=== PATIENT | female | born 1970 | race Caucasian/White ===

== ENCOUNTER 2018-08-25 19:21 | Emergency (ER) | payer OTHER, MEDICAID, SELFPAY ==
[2018-08-25 19:50] VITALS: BP 161/92; PULSE 88; RESP 14; TEMP 37.1; O2SAT 98; BMI 24.7
--- NOTE | 2018-08-25 19:55 | DI.RAD.S_ITS ---
PROCEDURE: XR CHEST 1V INDICATIONS: suspected sepsis TECHNIQUE: One view of the chest was acquired. COMPARISON: [facility], , CHEST 1 VIEW, 11/17/2007, 9:37. FINDINGS: Surgical changes and devices: Epidural neurostimulator is partially visualized. Multiple surgical clips are projected over the epigastrium. Lungs and pleura: No pleural effusions or pneumothorax. Lungs are clear. There is likely pleural scarring at the right hemidiaphragm. Mediastinum: Mediastinal contours appear normal. Heart size is normal. Bones and chest wall: No suspicious bony lesions. Overlying soft tissues appear unremarkable. IMPRESSION: No acute cardiopulmonary findings. Dictated by: Erin Arroyo M.D. on 08/25/2018 at 20:41 Approved by: Erin Arroyo M.D. on 08/25/2018 at 20:42
[2018-08-25 20:28] LABS: Add Manual Diff / Slide Review NO; Basophils Percent Auto 0.5 % (0-2); Eosinophils Percent Auto 0.1 % (2-4); Hematocrit 33.4 % (36-46); Hemoglobin 10.8 g/dL (12.0-16.0); Lymphocytes Percent Auto 3.8 % (25-40); Mean Corpuscular HGB Conc 32.2 % (30-36); Mean Corpuscular Hemoglobin 25.6 PG (26-34); Mean Corpuscular Volume 79.5 fL (80-100); Monocytes Percent Auto 4.1 % (3-14); Neutrophils Absolute Auto 10800 /uL (3000-5900); Neutrophils Percent Auto 91.5 % (50-75); Platelet Count 483 X10^3/uL (150-400); Red Cell Distribution Width 16.8 % (11.6-14.8); White Blood Cell Count 11.8 X10^3/uL (4.5-11.0)
[2018-08-25 20:32] LABS: INR 1.3 (0.9-1.3); Prothrombin Time 14.1 SECONDS (10.1-12.7)
[2018-08-25 20:35] LABS: PTT Partial Thromboplastin Tim 31 SECONDS (26.4-36.2)
[2018-08-25 20:36] LABS: Lactate (Lactic Acid) 0.6 mmol/L (0.7-2.1)
[2018-08-25 20:37] LABS: Alanine Aminotransferase 38 IU/L (9-52); Albumin 3.7 g/dL (3.5-5.0); Albumin Globulin Ratio 1.2 (1.0-2.8); Alkaline Phosphatase 102 U/L (38-126); Aspartate Aminotransferase 31 IU/L (14-36); Bilirubin Total 0.7 mg/dL (0.2-1.3); Blood Urea Nitrogen 13 mg/dL (7-17); Carbon Dioxide 35 mmol/L (22-32); Chloride 95 mmol/L (98-107); Estimated Glomerular Filt Rate > 60.0 mL/min (>60); Globulin 3.1 g/dL (1.7-4.1); Glucose 117 mg/dL (70-100); HEMOLYSIS 21 (0-50); Lipase 114 U/L (23-300); Potassium 2.9 mmol/L (3.4-5.1); Sodium 140 mmol/L (137-145); Total Protein 6.8 g/dL (6.3-8.2)
[2018-08-25 20:51] LABS: Procalcitonin 0.09 ng/mL (<0.5)
[2018-08-25 21:17] VITALS: BP 164/69; PULSE 72; RESP 13; O2SAT 99
[2018-08-25] MEDS: POTASSIUM CHLORIDE 20 MEQ TAB 40 MEQ PO (21:31)
--- NOTE | 2018-08-25 21:51 | ED_ITS ---
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 She is presenting with 1 week of fever. She says it does go down with ibuprofen it has been as high as 101 but is typically 100.7 and goes down to 99. She overall feels weak and tired. She has no chest pain cough all painful urination. She is nauseated. She has no abdominal pain. In June she was at [facility] and urgently transferred to [facility] where she was found to have severe sepsis thought to be from pancreatitis. MD complaint: fever Related Data Home Medications Medication Instructions Recorded Confirmed FLUDROCORTISONE ACETATE (Florinef) 0 PO * [facility] DOSE/FREQUENCY #0 11/17/07 HYDROCORTISONE (Hydrocortisone) 0 PO * UK DOSE/FREQUENCY #0 11/17/07 Allergies Allergy/AdvReac Type Severity Reaction Status Date / Time Sulfa (Sulfonamide Allergy Intermediate Verified 08/25/18 19:54 Antibiotics) [SULFA (SULFONAMIDE ANTIBIOTICS)] Review of Systems Review of Systems All systems reviewed & are unremarkable except as noted in HPI and below Constitutional Reports body ache(s), Denies chills, Reports fever(s), Denies lethargy and Reports weakness Eyes Denies change in vision, Denies eye discharge, Denies irritation and Denies loss of vision Cardiovascular Denies chest pain, Denies irregular heart rhythm, Denies lightheadedness, Denies palpitations and Denies orthopnea Gastrointestinal Gastrointestinal: Denies abdominal pain, Denies change in bowel habits, Denies diarrhea, Reports nausea and Denies vomiting Musculoskeletal Denies back pain, Denies muscle weakness, Denies numbness and Denies tingling Integumentary/Breasts Denies pruritus, Denies erythema, Denies rash and Denies wounds Neurologic Denies loss of vision, Denies numbness, Denies tingling and Reports weakness Endocrine Denies palpitations PFSH Medical History Chronic adrenal insufficiency (Acute) Pheochromocytoma (Acute) 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) Social History Smoking Status: Current some day smoker Exam Initial Vital Signs Initial Vital Signs: Vital Signs Temperature 98.7 F 08/25/18 19:50 Pulse Rate 88 08/25/18 19:50 Respiratory Rate 14 08/25/18 19:50 Blood Pressure 161/92 H 08/25/18 19:50 Pulse Oximetry 98 08/25/18 19:50 GENERAL: [Chronically ill cooperative alert and oriented x3 no acute distress HEENT: Head atraumatic,EOMI, pupils reactive CARDIOVASCULAR: Regular rate and rhythm without murmurs, rubs or gallops. RESPIRATORY: Breath sounds equal bilaterally, no wheezes rales or rhonchi. ABDOMEN: Midline ventral hernia noted she does have a masses that are palpable she is unsure if they have been there before. Otherwise abdomen is nontender and soft. No distention EXTREMITIES: Normal range of motion, no clubbing or edema. Neurovascularly intact NEUROLOGICAL: Alert and oriented x4.Normal gait and speech. SKIN: Warm, dry, no laceration, no petechiae, no rashes or lesions. Scores qSOFA Altered Mental Status (GCS <15): No Respiratory rate greater than/equal to 22: No Systolic blood pressure less than or equal to 100: No qSOFA Total: 0 0-1 Not High Risk 1-3 High risk SOFA SaO2/FIO2: 221-301 Platelets: >= 150 Bilirubin: < 1.2 mg/dL Hypotension: MAP >= 70 mmHg [place] Coma Scale: 15 Renal: < 1.2 mg/dL SOFA Score: 1 Course Orders Ordered: ED Orders 08/25/18 19:55 XR chest 1V Stat 08/25/18 20:00 Blood Culture Stat 08/25/18 20:10 Complete Blood Count AUTO DIFF Stat Comprehensive Metabolic Panel Stat Lactate (Lactic Acid) Stat Lipase Stat Partial Thromboplastin Time Stat Procalcitonin Stat Prothrombin Time INR Stat 08/25/18 21:30 EKG-12 Lead Stat 08/25/18 22:02 CT abdomen pelvis w con Stat Discontinued Medications Hydromorphone HCl (Dilaudid) 1 mg IV NOW ONE Stop: 08/26/18 00:16 Last Admin: 08/26/18 00:18 Dose: 1 mg Sodium Chloride (Normal Saline 0.9%) 1,000 mls @ 1,000 mls/hr IV BOLUS ONE Stop: 08/25/18 23:01 Last Infusion: 08/26/18 01:28 Dose: 0 mls/hr Admin: 08/25/18 22:29 Dose: 1,000 mls/hr Metoclopramide HCl (Reglan) 5 mg IV NOW ONE Stop: 08/25/18 22:03 Last Admin: 08/25/18 22:29 Dose: 5 mg Potassium Chloride (Klor-Con M20) 40 meq PO NOW ONE Stop: 08/25/18 21:30 Last Admin: 08/25/18 21:31 Dose: 40 meq Vital Signs - 8 hr 08/25/18 21:17 08/26/18 00:58 08/26/18 01:59 Temperature 98.9 F Pulse Rate 72 52 L 61 Respiratory Rate 13 16 18 Blood Pressure Blood Pressure [Right Arm] 164/69 H 133/66 132/57 L Pulse Oximetry 99 98 99 08/26/18 02:08 08/26/18 03:13 Temperature 98.2 F Pulse Rate 75 56 L Respiratory Rate 14 16 Blood Pressure 125/62 Blood Pressure [Right Arm] 125/66 Pulse Oximetry 96 97 MDM - Fever Medical Records Attestation: I reviewed the patient's medical records. Records from [facility] along with CT from 07/09/2018 Lab Data Attestation: I reviewed the patient's lab results. Result diagrams: 08/25/18 20:10 08/25/18 20:10 Lab Results 08/25/18 08/25/18 08/25/18 Range/Units 20:10 20:10 20:10 WBC 11.8 H (4.5-11.0) X10^3/uL RBC 4.20 (4.0-5.2) X10^6/uL Hgb 10.8 L (12.0-16.0) g/dL Hct 33.4 L (36-46) % MCV 79.5 L (80-100) fL MCH 25.6 L (26-34) PG MCHC 32.2 (30-36) % RDW 16.8 H (11.6-14.8) % Plt Count 483 H (150-400) X10^3/uL Neut % (Auto) 91.5 H (50-75) % Lymph % (Auto) 3.8 L (25-40) % [place] % (Auto) 4.1 (3-14) % Eos % (Auto) 0.1 L (2-4) % Baso % (Auto) 0.5 (0-2) % Neut # (Auto) 80622 H (4191-3261) /uL PT 14.1 H (10.1-12.7) SECONDS INR 1.3 (0.9-1.3) APTT 31 (26.4-36.2) SECONDS Sodium (137-145) mmol/L Potassium (3.4-5.1) mmol/L Chloride (98-107) mmol/L Carbon Dioxide (22-32) mmol/L BUN (7-17) mg/dL Creatinine (0.52-1.04) mg/dL Estimated GFR (>60) mL/min BUN/Creatinine Ratio (6-22) Glucose (70-100) mg/dL Lactate (0.7-2.1) mmol/L Calcium (8.4-10.2) mg/dL Total Bilirubin (0.2-1.3) mg/dL AST (14-36) IU/L ALT (9-52) IU/L Alkaline Phosphatase (38-126) U/L Total Protein (6.3-8.2) g/dL Albumin (3.5-5.0) g/dL Globulin (1.7-4.1) g/dL Albumin/Globulin Ratio (1.0-2.8) Lipase (23-300) U/L Procalcitonin 0.09 (<0.5) ng/mL 08/25/18 08/25/18 Range/Units 20:10 20:10 WBC (4.5-11.0) X10^3/uL RBC (4.0-5.2) X10^6/uL Hgb (12.0-16.0) g/dL Hct (36-46) % MCV (80-100) fL MCH (26-34) PG MCHC (30-36) % RDW (11.6-14.8) % Plt Count (150-400) X10^3/uL Neut % (Auto) (50-75) % Lymph % (Auto) (25-40) % [place] % (Auto) (3-14) % Eos % (Auto) (2-4) % Baso % (Auto) (0-2) % Neut # (Auto) (5509-2356) /uL PT (10.1-12.7) SECONDS INR (0.9-1.3) APTT (26.4-36.2) SECONDS Sodium 140 (137-145) mmol/L Potassium 2.9 L (3.4-5.1) mmol/L Chloride 95 L (98-107) mmol/L Carbon Dioxide 35 H (22-32) mmol/L BUN 13 (7-17) mg/dL Creatinine 0.50 L (0.52-1.04) mg/dL Estimated GFR > 60.0 (>60) mL/min BUN/Creatinine Ratio 26.0 H (6-22) Glucose 117 H (70-100) mg/dL Lactate 0.6 L (0.7-2.1) mmol/L Calcium 9.0 (8.4-10.2) mg/dL Total Bilirubin 0.7 (0.2-1.3) mg/dL AST 31 (14-36) IU/L ALT 38 (9-52) IU/L Alkaline Phosphatase 102 (38-126) U/L Total Protein 6.8 (6.3-8.2) g/dL Albumin 3.7 (3.5-5.0) g/dL Globulin 3.1 (1.7-4.1) g/dL Albumin/Globulin Ratio 1.2 (1.0-2.8) Lipase 114 (23-300) U/L Procalcitonin (<0.5) ng/mL Point of Care Testing Glucose POC 74 Urine Dip Bedside Urine Glucose Negative Bedside Urine Bilirubin - Negative Bedside Urine Ketone - Negative Urine Specific [place] 1.015 Bedside Urine Occult Blood - Negative Bedside Urine pH 6.0 Bedside Urine Protein +/- 15 Bedside Urine Urobilinogen - Negative Bedside Urine Nitrite - Negative Bedside Urine Leukocytes - Negative Esterase Imaging Data Chest x-ray: Radiologist's impression: PROCEDURE: XR CHEST 1V INDICATIONS: suspected sepsis TECHNIQUE: One view of the chest was acquired. COMPARISON: [facility], , CHEST 1 VIEW, 11/17/2007, 9:37. FINDINGS: Surgical changes and devices: Epidural neurostimulator is partially visualized. Multiple surgical clips are projected over the epigastrium. Lungs and pleura: No pleural effusions or pneumothorax. Lungs are clear. There is likely pleural scarring at the right hemidiaphragm. Mediastinum: Mediastinal contours appear normal. Heart size is normal. Bones and chest wall: No suspicious bony lesions. Overlying soft tissues appear unremarkable. IMPRESSION: No acute cardiopulmonary findings. Dictated by: Erin Arroyo M.D. on 08/25/2018 at 20:41 CT scan - abdomen: Radiologist's impression: security shift supervisor report: The pancreas partially resected. There are 3 rounded low-attenuation within the pancreatic body and tail axial images [id number] measuring 3.1 x 2.6, 4.4 x 3.6, 4.7 by 4.3 respectively. These represent interval findings. They are believed to represent pseudocyst. From caudal aspect of the pancreatic tail of fluid attenuation with peripheral enhancement measuring 11.2 x 9.8 x 9.4 cm likely representing enlarging pseudocyst. Large anterior abdominal wall defect again noted containing nonobstructed large and small bowel loops without findings to suggest strangulation Conclusion enlarging pancreatic pseudocyst as described. Partial resection of the pancreas. Cholecystectomy. Look there is wall thickening of the dorsal wall of the stomach which displaced anteriorly but I enlarging pseudocyst. Remaining findings as above ECG Data Attestation: I personally reviewed and interpreted this ECG as follows: Interpretation: Sinus rhythm rate 65 Q-waves noted in lead [address] changes here interval 147 QRS 101 QTC 457 MDM Narrative Medical decision making narrative: Patient has been in the ED for number of hours and has been afebrile. She overall does not look toxic or septic. No source of infection found at this time. Negative procalcitonin normal lactic acid. CT shows enlarging pseudocyst. She says she is supposed to get it drained. We discussed admission and transfer to [facility]. However at this time she would like to go home and have close follow-up with her doctors. This seems reasonable. She is hemodynamically stable, nontoxic. I discussed all findings with the patient, Education has been performed regarding treatment plan, diagnosis, warning signs and symptoms and all concerns have been addressed. Verbally agree with and understood all of the above. Discharge Plan Departure Patient Disposition: Home Clinical Impression: Acute hypokalemia Discharge Date/Time: 08/26/18 03:14 Interventions: ED Discharge Assessment Last Done: 08/26/18 03:13 Instructions: DI for Hypokalemia Activity Restrictions/Additional Instructions: *You have been diagnosed with low potassium, no source of fever is found *What to do: Blood work is reassuring, no source of bacterial infection. At this time recommend close outpatient follow-up of with your regular doctors Have potassium rechecked this week today is 2.9 *Continue to take medications as directed *Follow up with your primary care provider in 2-3 days *Return to ER if you should have persistent fever, no increased weakness, and inability to take medications or fluids or any new, worsening or concerning symptoms Prescriptions: No Action FLUDROCORTISONE ACETATE (Florinef) PO * [facility] DOSE/FREQUENCY Qty: 0 RF: 0 HYDROCORTISONE (Hydrocortisone) PO * [facility] DOSE/FREQUENCY Qty: 0 RF: 0 Referrals: Mesha Parker PA-C [Primary Care Provider] -
--- NOTE | 2018-08-25 22:02 | DI.CT.S_ITS ---
PROCEDURE: CT ABDOMEN PELVIS W CON INDICATIONS: Neuroendocrine tumor and hernia mass felt in abdomen TECHNIQUE: After the administration of oral and intravenous contrast, 5 mm thick sections acquired from the diaphragms to the symphysis. 5 mm thick coronal and sagittal reformats were performed. For radiation dose reduction, the following was used: automated exposure control, adjustment of mA and/or kV according to patient size. COMPARISON: Merged With [facility], CT, ABDOMEN/PELVIS WITH CONTRAST, 05/07/2016, 0:22. FINDINGS: Image quality: Excellent. ABDOMEN: Lung bases: Lung bases are clear. Heart size is normal. Solid organs: Liver is stable in size and enhancement with postoperative changes of extensive surgery just beneath the hepatic margin and what appears to be possible prior partial resection at the confluence of the right and left hepatic lobes inferiorly with a stable-appearing catheter tracking from an anterior bile duct on the right towards the midline. There is subtle increased enhancement in this area and immediately above, at anatomically what appears to be the anterior right hepatic lobe near the midline. This was not previously present in April of 2016 and measures up to 2.6 x 2.9 cm, potentially a hypervascular metastatic lesion in this clinical circumstance. The surgical changes likely reflects a variant of Whipple procedure in this patient with a history of neuroendocrine tumor. Gallbladder has been previously resected. Biliary system is non-dilated. Pancreas is not well seen as a normal entity, related to presumed Whipple procedure at the pancreatic head through the neck area. New abnormal fluid collections have developed along the pancreatic neck/body/tail area. The largest is ovoid, near the pancreatic neck, and measuring up to 11.2 cm AP, and 9.5 cm transverse and 9.5 cm craniocaudad. There is a smaller cystic structure just to the left and inferior to this dominant cystic abnormality measuring up to 4.5 cm (series 2 image 28) and a third more lateral cystic structure abutting the margin of the pancreatic tail measuring up to 3.8 cm. These have an appearance suggestive of pseudocyst formation. Spleen is normal in size and enhancement. No adrenal nodules. Kidneys are normal in size and enhancement, without hydronephrosis. Peritoneum and bowel: Stomach, small bowel, and colon loops are normal in caliber and wall thickness. No free fluid or air. Nodes and vessels: No retroperitoneal or mesenteric adenopathy. Aorta and inferior vena cava are normal in caliber. Miscellaneous: There is a large previously present body wall defect on the right with herniation of large and small bowel into the subcutaneous fat through this large defect. This shows no evidence of incarceration or strangulation.. PELVIS: Genitourinary: Bladder wall thickness is normal. The lower uterine segment is heterogeneous, and the endometrial lining appears heterogeneous also. Miscellaneous: No inguinal hernias or adenopathy. A metallic presumed pain control device overlies the posterior soft tissues on the right superimposed on the right iliac bone region. Bones: No suspicious bony lesions. No vertebral body compression fractures. IMPRESSION: 1. 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 This was previously present and a new complication from this surgical procedure in the area of extensive surgical clips is not identified. 2. Along the pancreatic neck, body and tail cystic structures have developed the largest of which is adjacent to the anterior upper border of the pancreatic neck as discussed above, measuring up to 11.2 cm in dimension. Pancreatic pseudocysts are considered the most likely cause, none of which was present in 2016. 3. 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 Nuclear medicine sestamibi scan with SPECT imaging may be warranted for more accurate assessment of that area. 4. Heterogeneous appearance of the low uterine segment myometrium and also heterogeneity within the endometrial space. Prior CT scanning from April of 2016 had identified an endometrial mass. Pelvic ultrasound likely is warranted for more accurate assessment. 5. A large body wall defect on the right allows extensive herniation of bowel contents into the subcutaneous fat, previously the case in 2016. No evidence of bowel incarceration or strangulation is present. No bowel inflammation is seen. 6. Presumed pain control device and leads are present, previously the case. No inflammation along the area of these leads or the pain control unit is seen. Dictated by: Royce Lobo M.D. on 08/26/2018 at 10:29 Approved by: Royce Lobo M.D. on 08/26/2018 at 10:44
[2018-08-25] MEDS: METOCLOPRAMIDE 10 MG/2 ML INJ 5 MG IV (22:29)
[2018-08-25] MEDS: SODIUM CHLORIDE 0.9% 1,000 ML 1000 ML IV (22:29)
[2018-08-26] MEDS: HYDROMORPHONE 1 MG INJ IV (00:18)
[2018-08-26 00:58] VITALS: BP 133/66; PULSE 52; RESP 16; O2SAT 98
[2018-08-26 01:59] VITALS: BP 132/57; PULSE 61; RESP 18; TEMP 37.2; O2SAT 99
[2018-08-26 02:08] VITALS: BP 125/66; PULSE 75; RESP 14; O2SAT 96
--- NOTE | 2018-08-26 02:20 | PC.NURSE ---
patient given an egg sandwich, string cheese, fruit, pudding and some juice. provider ok with patient having food and fluids. no new orders at this time.
[2018-08-26 03:13] VITALS: BP 125/62; PULSE 56; RESP 16; TEMP 36.8; O2SAT 97
== END 2018-08-26 03:14 | disposition home or self-care (01) ==
PROVIDERS: Emergency Provider Emergency Medicine; Family Provider Physician Assistant; PCP Physician Assistant
DX: E87.6 Hypokalemia (principal); R50.9 Fever, unspecified; Q85.8 Other phakomatoses, not elsewhere classified
CPT/HCPCS: 36591; 71045; 74177; 80053; 81003; 82962; 83605; 83690; 84145; 85025; 85610; 85730; 87040; 93005; 96361; 96374; 96375; 99283; 99285; J1170; J2765; Q9967

== ENCOUNTER 2018-08-26 17:25 | Inpatient (IN) | payer OTHER, MEDICAID, SELFPAY ==
[2018-08-26] VITALS (7 sets, daily range): BP systolic 134–182; BP diastolic 61–88; PULSE 67–112; RESP 13–20; TEMP 36.8–38.6; O2SAT 93–98; BMI 23.8
[2018-08-26 18:18] LABS: Add Manual Diff / Slide Review NO; Basophils Percent Auto 0.6 % (0-2); Eosinophils Percent Auto 0.5 % (2-4); Hematocrit 38.2 % (36-46); Hemoglobin 12.1 g/dL (12.0-16.0); Mean Corpuscular HGB Conc 31.6 % (30-36); Mean Corpuscular Hemoglobin 25.4 PG (26-34); Mean Corpuscular Volume 80.3 fL (80-100); Monocytes Percent Auto 8.4 % (3-14); Neutrophils Absolute Auto 8700 /uL (3000-5900); Neutrophils Percent Auto 80.5 % (50-75); Platelet Count 494 X10^3/uL (150-400); Red Blood Cell Count 4.76 X10^6/uL (4.0-5.2); Red Cell Distribution Width 16.5 % (11.6-14.8); White Blood Cell Count 10.7 X10^3/uL (4.5-11.0)
[2018-08-26 18:19] LABS: Lactate (Lactic Acid) 1.4 mmol/L (0.7-2.1)
[2018-08-26] MEDS: SODIUM CHLORIDE 0.9% 1,837.05 ML 612.35 ML IV (18:20)
[2018-08-26 18:21] LABS: Alanine Aminotransferase 46 IU/L (9-52); Albumin 3.9 g/dL (3.5-5.0); Albumin Globulin Ratio 1.2 (1.0-2.8); Alkaline Phosphatase 130 U/L (38-126); Aspartate Aminotransferase 25 IU/L (14-36); BUN Creatinine Ratio 13.3 (6-22); Bilirubin Total 0.8 mg/dL (0.2-1.3); Blood Urea Nitrogen 8 mg/dL (7-17); Calcium 9.2 mg/dL (8.4-10.2); Carbon Dioxide 37 mmol/L (22-32); Chloride 92 mmol/L (98-107); Estimated Glomerular Filt Rate > 60.0 mL/min (>60); Globulin 3.3 g/dL (1.7-4.1); Glucose 180 mg/dL (70-100); HEMOLYSIS < 15 (0-50); Sodium 140 mmol/L (137-145); Total Protein 7.2 g/dL (6.3-8.2)
--- NOTE | 2018-08-26 18:22 | ED.FEVER ---
HPI - Fever General Chief Complaint: Fever Stated Complaint: cancer patient, N/V feels like she wants to pass o Time Seen by Provider: 08/26/18 18:03 Source: patient Mode of arrival: ambulatory Limitations: no limitations History of Present Illness HPI Narrative: Patient is a 48-year-old female presenting again with fever. She has a complicated history a pancreatic pseudocyst, neuroendocrine tumors, Von Hippel-Lindau syndrome, adrenal insufficiency followed mostly at [facility]. She has been having low-grade fever 100.7 for about a week. Blood work CT abdomen chest x-ray and urine is last evening were unremarkable. Patient went home and slept until about 11:00 a.m. woke up not feeling well. She has been unable to keep her hydrocortisone down today she is temperature here of 101 and she is tachycardic. No specific symptoms she has been vomiting but no abdominal pain. Is no chest pain or productive cough. Related Data Home Medications Medication Instructions Recorded Confirmed FLUDROCORTISONE ACETATE (Florinef) 0 PO * [place] DOSE/FREQUENCY #0 11/17/07 HYDROCORTISONE (Hydrocortisone) 0 PO * [place] DOSE/FREQUENCY #0 11/17/07 Allergies Allergy/AdvReac Type Severity Reaction Status Date / Time Sulfa (Sulfonamide Allergy Intermediate Verified 08/25/18 19:54 Antibiotics) [SULFA (SULFONAMIDE ANTIBIOTICS)] Review of Systems Review of Systems All systems reviewed & are unremarkable except as noted in HPI and below Constitutional Reports as per HPI, Reports body ache(s), Reports chills and Reports fever(s) Eyes Denies change in vision, Denies eye discharge, Denies irritation and Denies loss of vision Cardiovascular Denies chest pain, Denies irregular heart rhythm, Denies lightheadedness, Denies palpitations, Denies dyspnea, Denies dyspnea on exertion and Denies orthopnea Respiratory Denies cough, Denies dyspnea, Denies dyspnea on exertion and Denies wheezing Gastrointestinal Gastrointestinal: Reports as per HPI, Reports nausea and Reports vomiting Musculoskeletal Denies back pain, Denies muscle weakness, Denies numbness and Denies tingling Integumentary/Breasts Denies pruritus, Denies erythema, Denies rash and Denies wounds Neurologic Denies loss of vision, Denies numbness and Denies tingling Endocrine Denies palpitations Allergic/Immunologic Denies wheezing [facility] Medical History Chronic adrenal insufficiency (Acute) Pheochromocytoma (Acute) 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 RESPIRATORY: Breath sounds equal bilaterally, no wheezes rales or rhonchi. ABDOMEN: Soft, abdominal hernia, hard mass felt no guarding no rebound, no distension EXTREMITIES: Normal range of motion, no clubbing or edema. Neurovascularly intact NEUROLOGICAL: Alert and oriented x4.Normal gait and speech. Cranial nerves II through XII grossly intact. SKIN: Warm, dry, no laceration, no petechiae, no rashes or lesions. Scores qSOFA Altered Mental Status (GCS <15): No Respiratory rate greater than/equal to 22: No Systolic blood pressure less than or equal to 100: No qSOFA Total: 0 0-1 Not High Risk 1-3 High risk SOFA SaO2/FIO2: 221-301 Platelets: >= 150 Bilirubin: < 1.2 mg/dL Hypotension: MAP >= 70 mmHg [place] Coma Scale: 15 Renal: < 1.2 mg/dL SOFA Score: 1 Course Orders Ordered: ED Orders 08/26/18 17:55 Complete Blood Count AUTO DIFF Stat Comprehensive Metabolic Panel Stat Lactate (Lactic Acid) Stat Lipase Stat Procalcitonin Stat 08/26/18 20:30 Blood Culture Stat Influenza A and B by PCR Rapid Stat Sodium Chloride (Normal Saline 0.9%) 1,837.05 mls @ 612.35 mls/hr 30 ml/kg infuse over 3 hr (1837.05 ml) IV CONT MARY Last Infusion: 08/26/18 20:14 Dose: 300 mls/hr Admin: 08/26/18 18:20 Dose: 612.35 mls/hr Potassium Chloride 60 meq/ (Sodium Chloride) 530 mls @ 88.333 mls/hr IV NOW ONE Stop: 08/27/18 01:02 Last Admin: 08/26/18 19:43 Dose: 88.333 mls/hr Discontinued Medications Acetaminophen (Tylenol) 975 mg PO NOW ONE Stop: 08/26/18 18:08 Last Admin: 08/26/18 19:32 Dose: 975 mg Dexamethasone (Decadron) 10 mg IV NOW ONE Stop: 08/26/18 18:27 Last Admin: 08/26/18 18:39 Dose: 10 mg Vancomycin HCl/Dextrose (Vancomycin) 1,000 mg in 200 mls @ 200 mls/hr IV NOW ONE Stop: 08/26/18 19:25 Last Infusion: 08/26/18 20:33 Dose: 0 mls/hr Admin: 08/26/18 19:34 Dose: 200 mls/hr Piperacillin/Tazobactam/Dextrose (Zosyn) 3.375 gm in 50 mls @ 100 mls/hr IV NOW ONE Stop: 08/26/18 18:55 Last Infusion: 08/26/18 19:32 Dose: 0 mls/hr Admin: 08/26/18 19:01 Dose: 100 mls/hr Metoclopramide HCl (Reglan) 10 mg IV NOW ONE Stop: 08/26/18 18:41 Last Admin: 08/26/18 18:41 Dose: 10 mg Ondansetron HCl (Zofran) 4 mg IV NOW ONE Stop: 08/26/18 18:19 Last Admin: 08/26/18 18:24 Dose: Not Given Vital Signs - 8 hr 08/26/18 17:32 08/26/18 18:57 08/26/18 20:14 Temperature 101.5 F H 99.3 F Pulse Rate 112 H 91 H Respiratory Rate 20 14 Blood Pressure 154/88 H Blood Pressure [Left Arm] 182/77 H Pulse Oximetry 98 08/26/18 20:38 Temperature Pulse Rate 73 Respiratory Rate 13 Blood Pressure Blood Pressure [Left Arm] 153/76 H Pulse Oximetry 93 MDM - Fever Medical Records Attestation: I reviewed the patient's medical records. Lab Data Attestation: I reviewed the patient's lab results. Result diagrams: 08/26/18 17:55 08/26/18 17:55 Lab Results 08/26/18 08/26/18 08/26/18 Range/Units 17:55 17:55 17:55 WBC 10.7 (4.5-11.0) X10^3/uL RBC 4.76 (4.0-5.2) X10^6/uL Hgb 12.1 (12.0-16.0) g/dL Hct 38.2 (36-46) % MCV 80.3 (80-100) fL MCH 25.4 L (26-34) PG MCHC 31.6 (30-36) % RDW 16.5 H (11.6-14.8) % Plt Count 494 H (150-400) X10^3/uL Neut % (Auto) 80.5 H (50-75) % Lymph % (Auto) 10.0 L (25-40) % [place] % (Auto) 8.4 (3-14) % Eos % (Auto) 0.5 L (2-4) % Baso % (Auto) 0.6 (0-2) % Neut # (Auto) 8700 H (8710-2181) /uL Sodium 140 (137-145) mmol/L Potassium 2.7 L* (3.4-5.1) mmol/L Chloride 92 L (98-107) mmol/L Carbon Dioxide 37 H (22-32) mmol/L BUN 8 (7-17) mg/dL Creatinine 0.60 (0.52-1.04) mg/dL Estimated GFR > 60.0 (>60) mL/min BUN/Creatinine Ratio 13.3 (6-22) Glucose 180 H (70-100) mg/dL Lactate (0.7-2.1) mmol/L Calcium 9.2 (8.4-10.2) mg/dL Total Bilirubin 0.8 (0.2-1.3) mg/dL AST 25 (14-36) IU/L ALT 46 (9-52) IU/L Alkaline Phosphatase 130 H (38-126) U/L Total Protein 7.2 (6.3-8.2) g/dL Albumin 3.9 (3.5-5.0) g/dL Globulin 3.3 (1.7-4.1) g/dL Albumin/Globulin Ratio 1.2 (1.0-2.8) Lipase (23-300) U/L Procalcitonin 0.15 (<0.5) ng/mL Urine Color Urine Appearance Urine pH (4.5-8.0) Ur Specific [place] (1.000-1.035) Urine Protein (Negative) Urine Glucose (UA) (Normal) g/dL Urine Ketones (NEGATIVE) Urine Occult Blood (Negative) Urine Nitrate (Negative) Urine Bilirubin (NEGATIVE) Urine Urobilinogen (0.2) E.U./dL Ur Leukocyte Esterase (NEGATIVE) Urine RBC (0-5/HPF) Urine WBC (0-5/HPF) Urine Bacteria (None) Ur Culture Indicated? Micro UA Comment Influenza A & B (PCR) (Negative) 08/26/18 08/26/18 08/26/18 Range/Units 17:55 17:55 20:30 WBC (4.5-11.0) X10^3/uL RBC (4.0-5.2) X10^6/uL Hgb (12.0-16.0) g/dL Hct (36-46) % MCV (80-100) fL MCH (26-34) PG MCHC (30-36) % RDW (11.6-14.8) % Plt Count (150-400) X10^3/uL Neut % (Auto) (50-75) % Lymph % (Auto) (25-40) % [place] % (Auto) (3-14) % Eos % (Auto) (2-4) % Baso % (Auto) (0-2) % Neut # (Auto) (3937-7482) /uL Sodium (137-145) mmol/L Potassium (3.4-5.1) mmol/L Chloride (98-107) mmol/L Carbon Dioxide (22-32) mmol/L BUN (7-17) mg/dL Creatinine (0.52-1.04) mg/dL Estimated GFR (>60) mL/min BUN/Creatinine Ratio (6-22) Glucose (70-100) mg/dL Lactate 1.4 (0.7-2.1) mmol/L Calcium (8.4-10.2) mg/dL Total Bilirubin (0.2-1.3) mg/dL AST (14-36) IU/L ALT (9-52) IU/L Alkaline Phosphatase (38-126) U/L Total Protein (6.3-8.2) g/dL Albumin (3.5-5.0) g/dL Globulin (1.7-4.1) g/dL Albumin/Globulin Ratio (1.0-2.8) Lipase 133 (23-300) U/L Procalcitonin (<0.5) ng/mL Urine Color Urine Appearance Urine pH (4.5-8.0) Ur Specific [place] (1.000-1.035) Urine Protein (Negative) Urine Glucose (UA) (Normal) g/dL Urine Ketones (NEGATIVE) Urine Occult Blood (Negative) Urine Nitrate (Negative) Urine Bilirubin (NEGATIVE) Urine Urobilinogen (0.2) E.U./dL Ur Leukocyte Esterase (NEGATIVE) Urine RBC (0-5/HPF) Urine WBC (0-5/HPF) Urine Bacteria (None) Ur Culture Indicated? Micro UA Comment Influenza A & B (PCR) Negative (Negative) 08/26/18 Range/Units Unknown WBC (4.5-11.0) X10^3/uL RBC (4.0-5.2) X10^6/uL Hgb (12.0-16.0) g/dL Hct (36-46) % MCV (80-100) fL MCH (26-34) PG MCHC (30-36) % RDW (11.6-14.8) % Plt Count (150-400) X10^3/uL Neut % (Auto) (50-75) % Lymph % (Auto) (25-40) % [place] % (Auto) (3-14) % Eos % (Auto) (2-4) % Baso % (Auto) (0-2) % Neut # (Auto) (7419-6363) /uL Sodium (137-145) mmol/L Potassium (3.4-5.1) mmol/L Chloride (98-107) mmol/L Carbon Dioxide (22-32) mmol/L BUN (7-17) mg/dL Creatinine (0.52-1.04) mg/dL Estimated GFR (>60) mL/min BUN/Creatinine Ratio (6-22) Glucose (70-100) mg/dL Lactate (0.7-2.1) mmol/L Calcium (8.4-10.2) mg/dL Total Bilirubin (0.2-1.3) mg/dL AST (14-36) IU/L ALT (9-52) IU/L Alkaline Phosphatase (38-126) U/L Total Protein (6.3-8.2) g/dL Albumin (3.5-5.0) g/dL Globulin (1.7-4.1) g/dL Albumin/Globulin Ratio (1.0-2.8) Lipase (23-300) U/L Procalcitonin (<0.5) ng/mL Urine Color Yellow Urine Appearance Clear Urine pH 7.0 (4.5-8.0) Ur Specific [place] 1.010 (1.000-1.035) Urine Protein Trace H (Negative) Urine Glucose (UA) Negative (Normal) g/dL Urine Ketones Trace H (NEGATIVE) Urine Occult Blood Trace-intact (Negative) Urine Nitrate Negative (Negative) Urine Bilirubin Negative (NEGATIVE) Urine Urobilinogen 0.2 (0.2) E.U./dL Ur Leukocyte Esterase Negative (NEGATIVE) Urine RBC 0-1/hpf (0-5/HPF) Urine WBC 0-1/hpf (0-5/HPF) Urine Bacteria None seen (None) Ur Culture Indicated? Cult not indicated Micro UA Comment Not Reportable Influenza A & B (PCR) (Negative) MDM Narrative Medical decision making narrative: Patient febrile in the ED tachycardic. Blood cultures still pending but likely negative from yesterday urine from yesterday negative. She has no signs or symptoms of cough or pneumonia. No she is vomiting her abdomen is soft and CT yesterday showed enlarging pseudocyst. She also has a rising calcitonin 0.09 yesterday and today is 0.15. She is started on vancomycin and Zosyn empirically. I have called and spoken with Dr. Fuad Bee, Oncology at [facility] to transfer patient. His at this time he recommends checking for influenza they are starting to see cases. He is happy to accept the patient unfortunately [facility] does not have beds. Patient is placed on a wait list with likely bed in the morning. Agreed with dexamethasone, antibiotics and fluids. Dr. Nichols updated on plan with transfer to [facility] when bed available. Discharge Plan Departure Patient Disposition: Admitted as Observation Clinical Impression: Fever, Acute hypokalemia Admit Date/Time: 08/26/18 21:03 Admit Provider: Torsten Nichols
[2018-08-26] MEDS: DEXAMETHASONE 10 MG/ML VIAL IV (18:39)
[2018-08-26] MEDS: METOCLOPRAMIDE 10 MG/2 ML INJ IV (18:41)
[2018-08-26 18:55] LABS: Potassium 2.7 mmol/L (3.4-5.1)
[2018-08-26] MEDS: PIPERACILLIN-TAZO 3.375 GM/50 ML FROZ.PIGGY IV (19:01)
[2018-08-26 19:03] LABS: Procalcitonin 0.15 ng/mL (<0.5)
[2018-08-26 19:13] LABS: Lipase 133 U/L (23-300)
[2018-08-26] MEDS: ACETAMINOPHEN 325 MG TABLET 975 MG PO (19:32)
[2018-08-26] MEDS: VANCOMYCIN 1,000 MG/200 ML FROZ.PIGGY 200 MG IV (19:34)
[2018-08-26] MEDS: POTASSIUM CHLORIDE 60 MEQ in SODIUM CHLORIDE 0.9% 500 ML 88.333 ML IV (19:43)
[2018-08-26 19:55] LABS: Bacteria Urine None Seen
[2018-08-26 19:56] LABS: Appearance Urine UA CLEAR; Bilirubin Urine UA NEGATIVE (NEGATIVE); Color Urine UA YELLOW; Glucose Urine UA NEGATIVE (Normal); Ketones Urine UA TRACE (NEGATIVE); Leukocyte Esterase Urine UA NEGATIVE (NEGATIVE); Nitrite Urine UA NEGATIVE (Negative); Occult Blood Urine UA TRACE-INTACT (Negative); Protein Urine UA TRACE (Negative); Urobilinogen Urine UA 0.2 E.U./dL (0.2)
[2018-08-26 20:06] LABS: Culture Indicated Urine Cult Not Indicated; RBC Urine 0-1/HPF (0-5/HPF); WBC Urine 0-1/HPF (0-5/HPF)
--- NOTE | 2018-08-26 20:12 | ED_ITS ---
HPI - Fever General Chief Complaint: Fever Stated Complaint: cancer patient, N/V feels like she wants to pass o Time Seen by Provider: 08/26/18 18:03 Source: patient Mode of arrival: ambulatory Limitations: no limitations History of Present Illness HPI Narrative: Patient is a 48-year-old female presenting again with fever. She has a complicated history a pancreatic pseudocyst, neuroendocrine tumors, Von Hippel-Lindau syndrome, adrenal insufficiency followed mostly at [facility]. She has been having low-grade fever 100.7 for about a week. Blood work CT abdomen chest x-ray and urine is last evening were unremarkable. Patient went home and slept until about 11:00 a.m. woke up not feeling well. She has been unable to keep her hydrocortisone down today she is temperature here of 101 and she is tachycardic. No specific symptoms she has been vomiting but no abdominal pain. Is no chest pain or productive cough. Related Data Home Medications Medication Instructions Recorded Confirmed FLUDROCORTISONE ACETATE (Florinef) 0 PO * [place] DOSE/FREQUENCY #0 11/17/07 HYDROCORTISONE (Hydrocortisone) 0 PO * [place] DOSE/FREQUENCY #0 11/17/07 Allergies Allergy/AdvReac Type Severity Reaction Status Date / Time Sulfa (Sulfonamide Allergy Intermediate Verified 08/25/18 19:54 Antibiotics) [SULFA (SULFONAMIDE ANTIBIOTICS)] Review of Systems Review of Systems All systems reviewed & are unremarkable except as noted in HPI and below Constitutional Reports as per HPI, Reports body ache(s), Reports chills and Reports fever(s) Eyes Denies change in vision, Denies eye discharge, Denies irritation and Denies loss of vision Cardiovascular Denies chest pain, Denies irregular heart rhythm, Denies lightheadedness, Denies palpitations, Denies dyspnea, Denies dyspnea on exertion and Denies orthopnea Respiratory Denies cough, Denies dyspnea, Denies dyspnea on exertion and Denies wheezing Gastrointestinal Gastrointestinal: Reports as per HPI, Reports nausea and Reports vomiting Musculoskeletal Denies back pain, Denies muscle weakness, Denies numbness and Denies tingling Integumentary/Breasts Denies pruritus, Denies erythema, Denies rash and Denies wounds Neurologic Denies loss of vision, Denies numbness and Denies tingling Endocrine Denies palpitations Allergic/Immunologic Denies wheezing [facility] Medical History Chronic adrenal insufficiency (Acute) Pheochromocytoma (Acute) 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 RESPIRATORY: Breath sounds equal bilaterally, no wheezes rales or rhonchi. ABDOMEN: Soft, abdominal hernia, hard mass felt no guarding no rebound, no distension EXTREMITIES: Normal range of motion, no clubbing or edema. Neurovascularly intact NEUROLOGICAL: Alert and oriented x4.Normal gait and speech. Cranial nerves II through XII grossly intact. SKIN: Warm, dry, no laceration, no petechiae, no rashes or lesions. Scores qSOFA Altered Mental Status (GCS <15): No Respiratory rate greater than/equal to 22: No Systolic blood pressure less than or equal to 100: No qSOFA Total: 0 0-1 Not High Risk 1-3 High risk SOFA SaO2/FIO2: 221-301 Platelets: >= 150 Bilirubin: < 1.2 mg/dL Hypotension: MAP >= 70 mmHg [place] Coma Scale: 15 Renal: < 1.2 mg/dL SOFA Score: 1 Course Orders Ordered: ED Orders 08/26/18 17:55 Complete Blood Count AUTO DIFF Stat Comprehensive Metabolic Panel Stat Lactate (Lactic Acid) Stat Lipase Stat Procalcitonin Stat 08/26/18 20:30 Blood Culture Stat Influenza A and B by PCR Rapid Stat Sodium Chloride (Normal Saline 0.9%) 1,837.05 mls @ 612.35 mls/hr 30 ml/kg infuse over 3 hr (1837.05 ml) IV CONT MARY Last Infusion: 08/26/18 20:14 Dose: 300 mls/hr Admin: 08/26/18 18:20 Dose: 612.35 mls/hr Potassium Chloride 60 meq/ (Sodium Chloride) 530 mls @ 88.333 mls/hr IV NOW ONE Stop: 08/27/18 01:02 Last Admin: 08/26/18 19:43 Dose: 88.333 mls/hr Discontinued Medications Acetaminophen (Tylenol) 975 mg PO NOW ONE Stop: 08/26/18 18:08 Last Admin: 08/26/18 19:32 Dose: 975 mg Dexamethasone (Decadron) 10 mg IV NOW ONE Stop: 08/26/18 18:27 Last Admin: 08/26/18 18:39 Dose: 10 mg Vancomycin HCl/Dextrose (Vancomycin) 1,000 mg in 200 mls @ 200 mls/hr IV NOW ONE Stop: 08/26/18 19:25 Last Infusion: 08/26/18 20:33 Dose: 0 mls/hr Admin: 08/26/18 19:34 Dose: 200 mls/hr Piperacillin/Tazobactam/Dextrose (Zosyn) 3.375 gm in 50 mls @ 100 mls/hr IV NOW ONE Stop: 08/26/18 18:55 Last Infusion: 08/26/18 19:32 Dose: 0 mls/hr Admin: 08/26/18 19:01 Dose: 100 mls/hr Metoclopramide HCl (Reglan) 10 mg IV NOW ONE Stop: 08/26/18 18:41 Last Admin: 08/26/18 18:41 Dose: 10 mg Ondansetron HCl (Zofran) 4 mg IV NOW ONE Stop: 08/26/18 18:19 Last Admin: 08/26/18 18:24 Dose: Not Given Vital Signs - 8 hr 08/26/18 17:32 08/26/18 18:57 08/26/18 20:14 Temperature 101.5 F H 99.3 F Pulse Rate 112 H 91 H Respiratory Rate 20 14 Blood Pressure 154/88 H Blood Pressure [Left Arm] 182/77 H Pulse Oximetry 98 08/26/18 20:38 Temperature Pulse Rate 73 Respiratory Rate 13 Blood Pressure Blood Pressure [Left Arm] 153/76 H Pulse Oximetry 93 MDM - Fever Medical Records Attestation: I reviewed the patient's medical records. Lab Data Attestation: I reviewed the patient's lab results. Result diagrams: 08/26/18 17:55 08/26/18 17:55 Lab Results 08/26/18 08/26/18 08/26/18 Range/Units 17:55 17:55 17:55 WBC 10.7 (4.5-11.0) X10^3/uL RBC 4.76 (4.0-5.2) X10^6/uL Hgb 12.1 (12.0-16.0) g/dL Hct 38.2 (36-46) % MCV 80.3 (80-100) fL MCH 25.4 L (26-34) PG MCHC 31.6 (30-36) % RDW 16.5 H (11.6-14.8) % Plt Count 494 H (150-400) X10^3/uL Neut % (Auto) 80.5 H (50-75) % Lymph % (Auto) 10.0 L (25-40) % [place] % (Auto) 8.4 (3-14) % Eos % (Auto) 0.5 L (2-4) % Baso % (Auto) 0.6 (0-2) % Neut # (Auto) 8700 H (7211-5118) /uL Sodium 140 (137-145) mmol/L Potassium 2.7 L* (3.4-5.1) mmol/L Chloride 92 L (98-107) mmol/L Carbon Dioxide 37 H (22-32) mmol/L BUN 8 (7-17) mg/dL Creatinine 0.60 (0.52-1.04) mg/dL Estimated GFR > 60.0 (>60) mL/min BUN/Creatinine Ratio 13.3 (6-22) Glucose 180 H (70-100) mg/dL Lactate (0.7-2.1) mmol/L Calcium 9.2 (8.4-10.2) mg/dL Total Bilirubin 0.8 (0.2-1.3) mg/dL AST 25 (14-36) IU/L ALT 46 (9-52) IU/L Alkaline Phosphatase 130 H (38-126) U/L Total Protein 7.2 (6.3-8.2) g/dL Albumin 3.9 (3.5-5.0) g/dL Globulin 3.3 (1.7-4.1) g/dL Albumin/Globulin Ratio 1.2 (1.0-2.8) Lipase (23-300) U/L Procalcitonin 0.15 (<0.5) ng/mL Urine Color Urine Appearance Urine pH (4.5-8.0) Ur Specific [place] (1.000-1.035) Urine Protein (Negative) Urine Glucose (UA) (Normal) g/dL Urine Ketones (NEGATIVE) Urine Occult Blood (Negative) Urine Nitrate (Negative) Urine Bilirubin (NEGATIVE) Urine Urobilinogen (0.2) E.U./dL Ur Leukocyte Esterase (NEGATIVE) Urine RBC (0-5/HPF) Urine WBC (0-5/HPF) Urine Bacteria (None) Ur Culture Indicated? Micro UA Comment Influenza A & B (PCR) (Negative) 08/26/18 08/26/18 08/26/18 Range/Units 17:55 17:55 20:30 WBC (4.5-11.0) X10^3/uL RBC (4.0-5.2) X10^6/uL Hgb (12.0-16.0) g/dL Hct (36-46) % MCV (80-100) fL MCH (26-34) PG MCHC (30-36) % RDW (11.6-14.8) % Plt Count (150-400) X10^3/uL Neut % (Auto) (50-75) % Lymph % (Auto) (25-40) % [place] % (Auto) (3-14) % Eos % (Auto) (2-4) % Baso % (Auto) (0-2) % Neut # (Auto) (5953-6340) /uL Sodium (137-145) mmol/L Potassium (3.4-5.1) mmol/L Chloride (98-107) mmol/L Carbon Dioxide (22-32) mmol/L BUN (7-17) mg/dL Creatinine (0.52-1.04) mg/dL Estimated GFR (>60) mL/min BUN/Creatinine Ratio (6-22) Glucose (70-100) mg/dL Lactate 1.4 (0.7-2.1) mmol/L Calcium (8.4-10.2) mg/dL Total Bilirubin (0.2-1.3) mg/dL AST (14-36) IU/L ALT (9-52) IU/L Alkaline Phosphatase (38-126) U/L Total Protein (6.3-8.2) g/dL Albumin (3.5-5.0) g/dL Globulin (1.7-4.1) g/dL Albumin/Globulin Ratio (1.0-2.8) Lipase 133 (23-300) U/L Procalcitonin (<0.5) ng/mL Urine Color Urine Appearance Urine pH (4.5-8.0) Ur Specific [place] (1.000-1.035) Urine Protein (Negative) Urine Glucose (UA) (Normal) g/dL Urine Ketones (NEGATIVE) Urine Occult Blood (Negative) Urine Nitrate (Negative) Urine Bilirubin (NEGATIVE) Urine Urobilinogen (0.2) E.U./dL Ur Leukocyte Esterase (NEGATIVE) Urine RBC (0-5/HPF) Urine WBC (0-5/HPF) Urine Bacteria (None) Ur Culture Indicated? Micro UA Comment Influenza A & B (PCR) Negative (Negative) 08/26/18 Range/Units Unknown WBC (4.5-11.0) X10^3/uL RBC (4.0-5.2) X10^6/uL Hgb (12.0-16.0) g/dL Hct (36-46) % MCV (80-100) fL MCH (26-34) PG MCHC (30-36) % RDW (11.6-14.8) % Plt Count (150-400) X10^3/uL Neut % (Auto) (50-75) % Lymph % (Auto) (25-40) % [place] % (Auto) (3-14) % Eos % (Auto) (2-4) % Baso % (Auto) (0-2) % Neut # (Auto) (8286-6028) /uL Sodium (137-145) mmol/L Potassium (3.4-5.1) mmol/L Chloride (98-107) mmol/L Carbon Dioxide (22-32) mmol/L BUN (7-17) mg/dL Creatinine (0.52-1.04) mg/dL Estimated GFR (>60) mL/min BUN/Creatinine Ratio (6-22) Glucose (70-100) mg/dL Lactate (0.7-2.1) mmol/L Calcium (8.4-10.2) mg/dL Total Bilirubin (0.2-1.3) mg/dL AST (14-36) IU/L ALT (9-52) IU/L Alkaline Phosphatase (38-126) U/L Total Protein (6.3-8.2) g/dL Albumin (3.5-5.0) g/dL Globulin (1.7-4.1) g/dL Albumin/Globulin Ratio (1.0-2.8) Lipase (23-300) U/L Procalcitonin (<0.5) ng/mL Urine Color Yellow Urine Appearance Clear Urine pH 7.0 (4.5-8.0) Ur Specific [place] 1.010 (1.000-1.035) Urine Protein Trace H (Negative) Urine Glucose (UA) Negative (Normal) g/dL Urine Ketones Trace H (NEGATIVE) Urine Occult Blood Trace-intact (Negative) Urine Nitrate Negative (Negative) Urine Bilirubin Negative (NEGATIVE) Urine Urobilinogen 0.2 (0.2) E.U./dL Ur Leukocyte Esterase Negative (NEGATIVE) Urine RBC 0-1/hpf (0-5/HPF) Urine WBC 0-1/hpf (0-5/HPF) Urine Bacteria None seen (None) Ur Culture Indicated? Cult not indicated Micro UA Comment Not Reportable Influenza A & B (PCR) (Negative) MDM Narrative Medical decision making narrative: Patient febrile in the ED tachycardic. Blood cultures still pending but likely negative from yesterday urine from yesterday negative. She has no signs or symptoms of cough or pneumonia. No she is vomiting her abdomen is soft and CT yesterday showed enlarging pseudocyst. She also has a rising calcitonin 0.09 yesterday and today is 0.15. She is started on vancomycin and Zosyn empirically. I have called and spoken with Dr. Fuad Bee, Oncology at [facility] to transfer patient. His at this time he recommends checking for influenza they are starting to see cases. He is happy to accept the patient unfortunately [facility] does not have beds. Patient is placed on a wait list with likely bed in the morning. Agreed with dexamethasone, antibiotics and fluids. Dr. Nichols updated on plan with transfer to [facility] when bed available. Discharge Plan Departure Patient Disposition: Admitted as Observation Clinical Impression: Fever, Acute hypokalemia Admit Date/Time: 08/26/18 21:03 Admit Provider: Torsten Nichols
[2018-08-26 20:52] LABS: Influenza A and B by PCR Rapid Negative (Negative)
--- NOTE | 2018-08-26 21:41 | P.HP_ITS ---
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 She has had fevers for about a week and they being progressively worse over the last 24-48 hours she has been having increasing abdominal pain and nausea. She was hospitalized at the [facility] in June with severe sepsis thought to be secondary or the source was thought to be the pancreatitis. She developed pseudocysts at that time. She has been followed by both Oncology and GI Clinic and they had been making arrangements for drainage of the large pseudocyst. CT scan done yesterday here in the emergency room showed the 11.2 cm diameter pseudocyst. Patient denies any dysuria denies any increased cough denies any skin rashes. Denies any diarrhea she has been having nausea and vomiting. Patient History Medical History Chronic adrenal insufficiency (Acute) Pheochromocytoma (Acute) 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) Family & Social History Tobacco & Substance use: Smoking Status Current some day smoker alcohol intake frequency other Substance Use Type does not use Meds Home Medications Medication Instructions Recorded Confirmed Type amlodipine 10 mg PO DAILY 08/26/18 08/26/18 History ascorbic acid (vitamin C) [Vitamin 500 mg PO DAILY 08/26/18 08/26/18 History C] aspirin [Aspir-81] 81 mg PO DAILY 08/26/18 08/26/18 History ferrous sulfate [iron] 325 mg PO DAILY 08/26/18 08/26/18 History fludrocortisone 0.1 mg PO DAILY 08/26/18 08/26/18 History glimepiride 4 mg PO QAM 08/26/18 08/26/18 History hydrocortisone 20 mg PO TID 08/26/18 08/26/18 History insulin glargine [Lantus U-100 12 unit SUBCUT DAILY 08/26/18 08/26/18 History Insulin] [id number] [Creon] 1 cap PO QD-TID 08/26/18 08/26/18 History lisinopril 40 mg PO DAILY 08/26/18 08/26/18 History medroxyprogesterone 10 mg PO DAILY 08/26/18 08/26/18 History methadone 20 mg PO Q6H 08/26/18 08/26/18 History omeprazole 20 mg PO DAILY 08/26/18 08/26/18 History ondansetron 8 mg PO Q8-12H PRN 08/26/18 08/26/18 History oxycodone 10 mg PO Q4-6H PRN 08/26/18 08/26/18 History ranitidine HCl 150 mg PO PRN PRN 08/26/18 08/26/18 History simethicone 180 mg PO DAILY 08/26/18 08/26/18 History Allergies Allergy/AdvReac Type Severity Reaction Status Date / Time Sulfa (Sulfonamide Allergy Intermediate Verified 08/25/18 19:54 Antibiotics) [SULFA (SULFONAMIDE ANTIBIOTICS)] Review of Systems Constitutional Constitutional: Reports anorexia, Reports chills, Reports fever(s) and Reports malaise Eyes Eyes: Reports system reviewed; no additional complaints, except as documented ENT Ears, Nose, Mouth, and Throat: Yes system reviewed; no additional complaints, except as documented Cardiovascular Cardiovascular: Reports system reviewed; no additional complaints, except as documented Respiratory Respiratory: Denies chest congestion, Denies cough and Denies hemoptysis Gastrointestinal Gastrointestinal: Reports abdominal pain and Reports vomiting Genitourinary Genitourinary: Reports system reviewed and no additional complaints, except as documented Musculoskeletal Musculoskeletal: Reports system reviewed; no additional complaints, except as documented Integumentary/Breasts Skin/Breast: Reports system reviewed and no additional complaints, except as documented Neurologic Neurologic: Reports system reviewed and no additional complaints, except as documented Psychiatric Psychiatric: Reports system reviewed and no additional complaints, except as documented Endocrine Endocrine: Reports system reviewed and no additional complaints, except as documented Hematologic/Lymphatic Hematologic/Lymphatic: Reports system reviewed and no additional complaints, except as documented Allergic/Immunologic Allergic/Immunologic: Reports system reviewed and no additional complaints, except as documented Exam Vital Signs (past 8 hours): - 08/26/18 17:32 08/26/18 18:57 08/26/18 20:14 Temperature 101.5 F H 99.3 F Pulse Rate 112 H 91 H Respiratory Rate 20 14 Blood Pressure 154/88 H Blood Pressure [Left Arm] 182/77 H Pulse Oximetry 98 08/26/18 20:38 Temperature Pulse Rate 73 Respiratory Rate 13 Blood Pressure Blood Pressure [Left Arm] 153/76 H Pulse Oximetry 93 Oxygen Delivery Method Room Air Narrative Exam Narrative: Pleasant middle-aged female appearing somewhat ill with the pain and discomfort nausea awake alert she is conversant answers questions appropriately speech is normal Oropharynx dry mucous membranes Neck is supple Lungs Clear to auscultation Heart tachycardic Abdomen soft she has a palpable mass in the left upper quadrant area tender to palpation apparently her pseudocyst bowel sounds are hypoactive Skin moist and warm Neuro exam awake alert oriented no focal deficit Lower extremities trace edema Objective Labs Result Diagrams: 08/26/18 17:55 08/26/18 17:55 Labs: Laboratory Results - last 24 hr 08/26/18 08/26/18 08/26/18 17:55 17:55 17:55 WBC 10.7 RBC 4.76 Hgb 12.1 Hct 38.2 MCV 80.3 MCH 25.4 L MCHC 31.6 RDW 16.5 H Plt Count 494 H Neut % (Auto) 80.5 H Lymph % (Auto) 10.0 L [place] % (Auto) 8.4 Eos % (Auto) 0.5 L Baso % (Auto) 0.6 Neut # (Auto) 8700 H Sodium 140 Potassium 2.7 L* Chloride 92 L Carbon Dioxide 37 H BUN 8 Creatinine 0.60 Estimated GFR > 60.0 BUN/Creatinine Ratio 13.3 Glucose 180 H Lactate Calcium 9.2 Total Bilirubin 0.8 AST 25 ALT 46 Alkaline Phosphatase 130 H Total Protein 7.2 Albumin 3.9 Globulin 3.3 Albumin/Globulin Ratio 1.2 Lipase Procalcitonin 0.15 Urine Color Urine Appearance Urine pH Ur Specific [place] Urine Protein Urine Glucose (UA) Urine Ketones Urine Occult Blood Urine Nitrate Urine Bilirubin Urine Urobilinogen Ur Leukocyte Esterase Urine RBC Urine WBC Urine Bacteria Ur Culture Indicated? Micro UA Comment Influenza A & B (PCR) 08/26/18 08/26/18 08/26/18 17:55 17:55 20:30 WBC RBC Hgb Hct MCV MCH MCHC RDW Plt Count Neut % (Auto) Lymph % (Auto) [place] % (Auto) Eos % (Auto) Baso % (Auto) Neut # (Auto) Sodium Potassium Chloride Carbon Dioxide BUN Creatinine Estimated GFR BUN/Creatinine Ratio Glucose Lactate 1.4 Calcium Total Bilirubin AST ALT Alkaline Phosphatase Total Protein Albumin Globulin Albumin/Globulin Ratio Lipase 133 Procalcitonin Urine Color Urine Appearance Urine pH Ur Specific [place] Urine Protein Urine Glucose (UA) Urine Ketones Urine Occult Blood Urine Nitrate Urine Bilirubin Urine Urobilinogen Ur Leukocyte Esterase Urine RBC Urine WBC Urine Bacteria Ur Culture Indicated? Micro UA Comment Influenza A & B (PCR) Negative 08/26/18 Unknown WBC RBC Hgb Hct MCV MCH MCHC RDW Plt Count Neut % (Auto) Lymph % (Auto) [place] % (Auto) Eos % (Auto) Baso % (Auto) Neut # (Auto) Sodium Potassium Chloride Carbon Dioxide BUN Creatinine Estimated GFR BUN/Creatinine Ratio Glucose Lactate Calcium Total Bilirubin AST ALT Alkaline Phosphatase Total Protein Albumin Globulin Albumin/Globulin Ratio Lipase Procalcitonin Urine Color Yellow Urine Appearance Clear Urine pH 7.0 Ur Specific [place] 1.010 Urine Protein Trace H Urine Glucose (UA) Negative Urine Ketones Trace H Urine Occult Blood Trace-intact Urine Nitrate Negative Urine Bilirubin Negative Urine Urobilinogen 0.2 Ur Leukocyte Esterase Negative Urine RBC 0-1/hpf Urine WBC 0-1/hpf Urine Bacteria None seen Ur Culture Indicated? Cult not indicated Micro UA Comment Not Reportable Influenza A & B (PCR) Assessment & Plan Plan: Assessment/Plan Narrative: One. Fever uncertain etiology but most likely due to the infected pseudocyst. No other obvious sources noted no respiratory source no other GI source no skin rashes or infection no urinary infection. Blood cultures drawn last night when she was seen here in the ER and again today. We have contacted the [facility] dental have any room for her this evening but she does need to be transferred down there and we will try again in the morning. In the meantime will treat her conservatively with IV fluids IV antibiotics for possible infection of the pseudocyst with Unasyn. 2. History of adrenal insufficiency she has been on hydrocortisone she had some nausea and vomiting and was unable to take the dose. She got some IV steroids this evening. 3. History of hypertension plan to resume her oral medications 4. History of pancreatitis with pseudocyst plan to make her NPO for now place her on IV fluids. 5. Hypokalemia she has received some IV potassium in the emergency department 6. Chronic abdominal pain from chronic pancreatitis pseudocyst on chronic narcotic therapy plan to continue her narcotics as at home and supplement with IV narcotics as needed
--- NOTE | 2018-08-26 23:54 | PC.NURSE ---
2220- Pt arrived to [id number] from ED via bed. A/O x3, 93%RA, LS clear, denies SOB, nausea, and pain at this time. RAC NS+60mgKCL @ 88.3 infusing, and D5 1/2NS @ 100 infusing to right wrist. BRP to void with SBA. NPO status. transfer to tomorrow.
[2018-08-27] VITALS (9 sets, daily range): BP systolic 132–149; BP diastolic 63–91; PULSE 48–58; RESP 15–16; TEMP 36.5–37; O2SAT 94–98
[2018-08-27] MEDS: DEXTROSE 5%-0.9% NS 1,000 ML 100 ML IV ×2 (00:52→12:50)
[2018-08-27] MEDS: AMPICILLIN/SULBACTAM 3 GM 3 GM in SODIUM CHLORIDE 0.9% 100 ML IV ×4 (01:53→20:12)
[2018-08-27] MEDS: ONDANSETRON 4 MG/2 ML INJ IV (04:49)
[2018-08-27] MEDS: MORPHINE 2 MG/ML INJ IV (04:49)
[2018-08-27 06:21] LABS: Add Manual Diff / Slide Review NO; Basophils Percent Auto 0.4 % (0-2); Hematocrit 32.2 % (36-46); Hemoglobin 10.7 g/dL (12.0-16.0); Lymphocytes Percent Auto 4.9 % (25-40); Mean Corpuscular HGB Conc 33.2 % (30-36); Mean Corpuscular Hemoglobin 26.2 PG (26-34); Mean Corpuscular Volume 78.9 fL (80-100); Neutrophils Absolute Auto 10300 /uL (3000-5900); Neutrophils Percent Auto 91.7 % (50-75); Platelet Count 429 X10^3/uL (150-400); Red Blood Cell Count 4.08 X10^6/uL (4.0-5.2); Red Cell Distribution Width 16.3 % (11.6-14.8); White Blood Cell Count 11.2 X10^3/uL (4.5-11.0)
[2018-08-27] MEDS: METOCLOPRAMIDE 10 MG/2 ML INJ 5 MG IV (07:49)
[2018-08-27] MEDS: PANTOPRAZOLE 40 MG VIAL IV (07:53)
[2018-08-27 08:02] LABS: Alanine Aminotransferase 41 IU/L (9-52); Albumin 3.1 g/dL (3.5-5.0); Albumin Globulin Ratio 1.1 (1.0-2.8); Alkaline Phosphatase 103 U/L (38-126); Aspartate Aminotransferase 21 IU/L (14-36); Bilirubin Total 0.5 mg/dL (0.2-1.3); Blood Urea Nitrogen 10 mg/dL (7-17); Calcium 8.5 mg/dL (8.4-10.2); Carbon Dioxide 32 mmol/L (22-32); Chloride 100 mmol/L (98-107); Estimated Glomerular Filt Rate > 60.0 mL/min (>60); Globulin 2.8 g/dL (1.7-4.1); Glucose 260 mg/dL (70-100); HEMOLYSIS < 15 (0-50); Potassium 3.6 mmol/L (3.4-5.1); Sodium 141 mmol/L (137-145); Total Protein 5.9 g/dL (6.3-8.2)
--- NOTE | 2018-08-27 08:51 | CM.DANOTE ---
DCP: Case received, EMR reviewed and met with patient. Introduced self and role. DCP template completed with information currently available. Patient is a 48 year old female who admitted yesterday evening to the care of the hospitalist team. PCP: Dr. Parker. Payer: confirmed: [facility] Healthy Options/Medicaid. Patient came to hospital with symptoms of syncope, weakness. Patient carries diagnosis of Neuoendocrine tumors and metastisis to liver, as well as Chronic Pancreatitis. Patient has been going to oncology for treatments. Lives in [place] with her spouse. Is independent at home. P: DCP to continue to assess. Patient may be returning home when stable. Barbara Villasenor RN/Drainman
[2018-08-27] MEDS: LORazepam 2 MG/ML SYRINGE 1 MG IV ×2 (09:02→18:54)
[2018-08-27] MEDS: INSULIN GLARGINE 100 UNIT/ML 3ML PEN 12 UNIT SUBCUT (09:05)
--- NOTE | 2018-08-27 09:16 | CM.DPC ---
DCP Cont: Plan is for patient to transfer to [facility], for she gets treated there. Hospitalist is working on transfer. [employer] Tutor will be helping with transport. P: Patient to transfer to [facility] today. Barbara Villasenor RN/Driver License Reviewing Officer
--- NOTE | 2018-08-27 10:14 | PC.NURSE ---
Addendum entered by Carrie Estrella R.N. 08/27/18 14:17: GI/PAIN - drowsy after ativan, did help relieve nausea and provided pain relief, declines pain medication this afternoon, in and states pt may have clear liq this evening and npo after midn for tsf uw tomorrow if bed available. Original Note: AM NOTE - pt is awake, continues with abd pain, points across mid to lower abd and radiating to back, restless and moaning, also continues with nausea after the earlier zofran, given reglan this am without relief, provided ice pack for abd .discussed medications and pt reports that ativan has worked in past for pain and nausea, Dr. Rodriguez contacted and new order rec'd for 1mg iv ativan, medication admin and pt able to sleep, hr 48, ra 98%, bt are present, hypo, discussed lantus 12 units pt usual dose, per discussion with , may admin as pt ivf d5NS, per pt req that 10 units be admin, earlier cbg blood and finger stick 254 and 260
[2018-08-27] MEDS: HYDROCORTISONE 10 MG TABLET 20 MG PO ×2 (12:52→20:13)
[2018-08-27] MEDS: AMLODIPINE 5 MG TABLET 10 MG PO (12:53)
[2018-08-27] MEDS: LISINOPRIL 20 MG TABLET 40 MG PO (13:07)
[2018-08-27] MEDS: ENOXAPARIN 40 MG/0.4 ML SYRINGE SUBCUT (13:12)
--- NOTE | 2018-08-27 14:30 | P.PN_ITS ---
Subjective Date Patient Seen: 08/27/18 Time Patient Seen: 14:27 Interval history: FOLLOW UP ON FEVER/NAUSEA/VOMITING Patient seen at bedside. She is a little bit better with pain control and nausea control. She is able to have some clear liquids with no vomiting. No overnight events. Exam Vital Signs (past 8 hours): - 08/27/18 07:40 08/27/18 08:00 08/27/18 12:00 Temperature 98.2 F 97.7 F Pulse Rate 48 L 52 L Respiratory Rate 16 16 Blood Pressure 135/70 149/91 H Pulse Oximetry 97 98 98 Oxygen Delivery Method Room Air Oxygen Flow Rate 0 Narrative Exam Narrative: Gen: NAD, AAOx3 HEENT: PERRLA BL Neck: Supple, no LAD CV: RRR, no murmurs Resp: CTA BL, no wheezing GI: Tenderness to deep palpation in epigastric region. +BS MSK: Normal ROM Skin: No edema or bruising Neuro: NFD Objective Labs Result Diagrams: 08/27/18 05:55 08/27/18 07:32 Labs: Laboratory Results - last 24 hr 08/26/18 08/26/18 08/26/18 17:55 17:55 17:55 WBC 10.7 RBC 4.76 Hgb 12.1 Hct 38.2 MCV 80.3 MCH 25.4 L MCHC 31.6 RDW 16.5 H Plt Count 494 H Neut % (Auto) 80.5 H Lymph % (Auto) 10.0 L [place] % (Auto) 8.4 Eos % (Auto) 0.5 L Baso % (Auto) 0.6 Neut # (Auto) 8700 H Sodium 140 Potassium 2.7 L* Chloride 92 L Carbon Dioxide 37 H BUN 8 Creatinine 0.60 Estimated GFR > 60.0 BUN/Creatinine Ratio 13.3 Glucose 180 H Lactate Calcium 9.2 Total Bilirubin 0.8 AST 25 ALT 46 Alkaline Phosphatase 130 H Total Protein 7.2 Albumin 3.9 Globulin 3.3 Albumin/Globulin Ratio 1.2 Lipase Procalcitonin 0.15 Urine Color Urine Appearance Urine pH Ur Specific [place] Urine Protein Urine Glucose (UA) Urine Ketones Urine Occult Blood Urine Nitrate Urine Bilirubin Urine Urobilinogen Ur Leukocyte Esterase Urine RBC Urine WBC Urine Bacteria Ur Culture Indicated? Micro UA Comment Influenza A & B (PCR) 08/26/18 08/26/18 08/26/18 17:55 17:55 20:30 WBC RBC Hgb Hct MCV MCH MCHC RDW Plt Count Neut % (Auto) Lymph % (Auto) [place] % (Auto) Eos % (Auto) Baso % (Auto) Neut # (Auto) Sodium Potassium Chloride Carbon Dioxide BUN Creatinine Estimated GFR BUN/Creatinine Ratio Glucose Lactate 1.4 Calcium Total Bilirubin AST ALT Alkaline Phosphatase Total Protein Albumin Globulin Albumin/Globulin Ratio Lipase 133 Procalcitonin Urine Color Urine Appearance Urine pH Ur Specific [place] Urine Protein Urine Glucose (UA) Urine Ketones Urine Occult Blood Urine Nitrate Urine Bilirubin Urine Urobilinogen Ur Leukocyte Esterase Urine RBC Urine WBC Urine Bacteria Ur Culture Indicated? Micro UA Comment Influenza A & B (PCR) Negative 08/26/18 08/27/18 08/27/18 Unknown 05:55 07:32 WBC 11.2 H RBC 4.08 Hgb 10.7 L Hct 32.2 L MCV 78.9 L MCH 26.2 MCHC 33.2 RDW 16.3 H Plt Count 429 H Neut % (Auto) 91.7 H Lymph % (Auto) 4.9 L [place] % (Auto) 3.0 Eos % (Auto) 0.0 L Baso % (Auto) 0.4 Neut # (Auto) 59322 H Sodium 141 Potassium 3.6 Chloride 100 Carbon Dioxide 32 BUN 10 Creatinine 0.50 L Estimated GFR > 60.0 BUN/Creatinine Ratio 20.0 Glucose 260 H Lactate Calcium 8.5 Total Bilirubin 0.5 AST 21 ALT 41 Alkaline Phosphatase 103 Total Protein 5.9 L Albumin 3.1 L Globulin 2.8 Albumin/Globulin Ratio 1.1 Lipase Procalcitonin Urine Color Yellow Urine Appearance Clear Urine pH 7.0 Ur Specific [place] 1.010 Urine Protein Trace H Urine Glucose (UA) Negative Urine Ketones Trace H Urine Occult Blood Trace-intact Urine Nitrate Negative Urine Bilirubin Negative Urine Urobilinogen 0.2 Ur Leukocyte Esterase Negative Urine RBC 0-1/hpf Urine WBC 0-1/hpf Urine Bacteria None seen Ur Culture Indicated? Cult not indicated Micro UA Comment Not Reportable Influenza A & B (PCR) Assessment & Plan Plan: Assessment/Plan Narrative: 1. Fever - Uncertain etiology at this time but suspecting infected pancreatic pseudocyst - No longer febrile since admission - Leukocytosis worsening, 11.2 today - UA negative, CXR negative - CT abd/pelvis reviewed: Along the pancreatic neck, body and tail cystic structures have developed the largest of which is adjacent to the anterior upper border of the pancreatic neck , measuring up to 11.2 cm in dimension. Pancreatic pseudocysts are considered the most likely cause. 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 - [facility] contacted again for transfer because patient likely needs pseudocyst drainage, but unfortunately no beds available at this time - Will continue pain control with Morphine - Nausea/vomiting control with zofran/reglan/ativan - Continue Zosyn/Vancomycin - CLD if patient tolerates - pending blood cultures 2. DM Type II - Due to whipples procedure - Continue basal insulin and sliding scale - Continue IVF D5NS - frequent acuchecks, hypoglycemia protocol 3. 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 Neuroendocrine tumor - With mets to [place]ver, s/p whipple procedure and removal - Patient is on chronic monthly Octreatide therapy 5. Hx. Of Pheochromocytoma, benign - S/p adrenal resection, now on hormone replacement therapy 6. Hypokalemia - Resolved 7. Uterine fibroids - with heavy menses - continue medroxyprogesterone 8. HTN - BP stable - Continue amlodipine and lisinopril 25 min spent evaluating and providing care to this patient Quality VTE Deep Vein Thrombosis/Pulmonary Embolism Present on Admission: No
[2018-08-27] MEDS: INSULIN ASPART 100 UNIT/ML INSULN PEN SUBCUT ×2 (17:12→21:04)
[2018-08-27] MEDS: MEDROXYPROGESTERONE ACETATE 10 MG TABLET PO (17:14)
[2018-08-27] MEDS: FLUDROCORTISONE 0.1 MG TABLET PO (17:14)
[2018-08-28] VITALS (10 sets, daily range): BP systolic 147–162; BP diastolic 73–90; PULSE 51–81; RESP 14–20; TEMP 36.6–37; O2SAT 95–99
[2018-08-28] MEDS: DEXTROSE 5%-0.9% NS 1,000 ML 100 ML IV ×2 (00:08→11:56)
[2018-08-28] MEDS: MORPHINE 2 MG/ML INJ IV (00:10)
--- NOTE | 2018-08-28 00:58 | PC.NURSE ---
Entry Level Accounting Clerk Note: 0015: Awake, resting in bed. Vital signs stable. Pt states she is having 6/10 pain in abdomen. Medicated for pain with Morphine 2mg IV. IVs in place in rt AC and rt hand. Rt AC IV has D5NS infusing at 100cc/hr. Rt hand IV is saline locked.
[2018-08-28] MEDS: AMPICILLIN/SULBACTAM 3 GM 3 GM in SODIUM CHLORIDE 0.9% 100 ML IV ×4 (01:48→19:52)
[2018-08-28] MEDS: LORazepam 2 MG/ML SYRINGE 1 MG IV ×3 (01:48→18:16)
[2018-08-28] MEDS: METOCLOPRAMIDE 10 MG/2 ML INJ 5 MG IV ×2 (03:33→12:03)
[2018-08-28 06:11] LABS: Add Manual Diff / Slide Review NO; Basophils Percent Auto 0.4 % (0-2); Eosinophils Percent Auto 0.2 % (2-4); Hematocrit 35.2 % (36-46); Hemoglobin 11.6 g/dL (12.0-16.0); Mean Corpuscular Hemoglobin 26.2 PG (26-34); Mean Corpuscular Volume 79.4 fL (80-100); Monocytes Percent Auto 7.5 % (3-14); Neutrophils Absolute Auto 10200 /uL (3000-5900); Neutrophils Percent Auto 80.9 % (50-75); Platelet Count 433 X10^3/uL (150-400); Red Blood Cell Count 4.43 X10^6/uL (4.0-5.2); Red Cell Distribution Width 16.4 % (11.6-14.8); White Blood Cell Count 12.6 X10^3/uL (4.5-11.0)
[2018-08-28 06:20] LABS: Alanine Aminotransferase 33 IU/L (9-52); Albumin Globulin Ratio 1.1 (1.0-2.8); Alkaline Phosphatase 97 U/L (38-126); Aspartate Aminotransferase 14 IU/L (14-36); Bilirubin Total 0.3 mg/dL (0.2-1.3); Blood Urea Nitrogen 6 mg/dL (7-17); Calcium 8.7 mg/dL (8.4-10.2); Carbon Dioxide 34 mmol/L (22-32); Chloride 96 mmol/L (98-107); Estimated Glomerular Filt Rate > 60.0 mL/min (>60); Globulin 2.8 g/dL (1.7-4.1); Glucose 301 mg/dL (70-100); HEMOLYSIS < 15 (0-50); Magnesium 1.8 mg/dL (1.6-2.3); Sodium 140 mmol/L (137-145); Total Protein 5.8 g/dL (6.3-8.2)
[2018-08-28] MEDS: INSULIN GLARGINE 100 UNIT/ML 3ML PEN 12 UNIT SUBCUT (08:33)
[2018-08-28] MEDS: INSULIN ASPART 100 UNIT/ML INSULN PEN SUBCUT ×4 (08:38→21:55)
[2018-08-28] MEDS: ENOXAPARIN 40 MG/0.4 ML SYRINGE SUBCUT (08:43)
[2018-08-28] MEDS: PANTOPRAZOLE 40 MG VIAL IV (08:46)
[2018-08-28] MEDS: LISINOPRIL 20 MG TABLET 40 MG PO (09:37)
[2018-08-28] MEDS: AMLODIPINE 5 MG TABLET 10 MG PO (09:38)
[2018-08-28] MEDS: HYDROCORTISONE 10 MG TABLET 20 MG PO ×3 (09:38→21:57)
[2018-08-28] MEDS: MEDROXYPROGESTERONE ACETATE 10 MG TABLET PO (09:58)
[2018-08-28] MEDS: FLUDROCORTISONE 0.1 MG TABLET PO (09:59)
--- NOTE | 2018-08-28 11:58 | PC.NURSE ---
AM NOTE - awakens easily, drowsy, does sit up and moan, discussed pain and nausea, per pt the pain does seem to bring on the nausea, given 1mg iv ativan this am, ivanna sips clears, pain 5-6 on scale 0/10, declines the morphine this am or oxycodone, ra 98%, hr 52, bp 155/73, prior to lunch, given 5mg iv reglan.
--- NOTE | 2018-08-28 17:17 | PC.NURSE ---
Pt in bed very drowsy, but easily rousable to voice. States pain and nausea are marginal. Quickly to sleep when not engaged in conversation/activity with staff. Tele in place and bed alarm set for pt's safety.
--- NOTE | 2018-08-28 18:41 | PM.PN.1 ---
Subjective Date Patient Seen: 08/28/18 Time Patient Seen: 18:41 Interval history: FOLLOW UP ON FEVER/NAUSEA/VOMITING Patient seen at bedside. Still having nausea but no vomiting. Able to tolerate CLD. No overnight events. Still waiting to transfer patient out to . If not, then will try another facility with GI specialty tomorrow. Exam Vital Signs (past 8 hours): - 08/28/18 10:58 08/28/18 11:58 08/28/18 16:41 Temperature 97.8 F 98.6 F Pulse Rate 59 L 69 81 Respiratory Rate 16 16 Blood Pressure 147/74 H 162/88 H Pulse Oximetry 99 96 97 Oxygen Delivery Method Room Air Oxygen Flow Rate 0 Narrative Exam Narrative: Gen: NAD, AAOx3 HEENT: PERRLA BL Neck: Supple, no LAD CV: RRR, no murmurs Resp: CTA BL, no wheezing GI: Tenderness to deep palpation in epigastric region. +BS MSK: Normal ROM Skin: No edema or bruising Neuro: NFD Objective Labs Result Diagrams: 08/28/18 06:00 08/28/18 06:00 Labs: Laboratory Results - last 24 hr 08/28/18 08/28/18 06:00 06:00 WBC 12.6 H RBC 4.43 Hgb 11.6 L Hct 35.2 L MCV 79.4 L MCH 26.2 MCHC 33.0 RDW 16.4 H Plt Count 433 H Neut % (Auto) 80.9 H Lymph % (Auto) 11.0 L [place] % (Auto) 7.5 Eos % (Auto) 0.2 L Baso % (Auto) 0.4 Neut # (Auto) 90074 H Sodium 140 Potassium 3.0 L Chloride 96 L Carbon Dioxide 34 H BUN 6 L Creatinine 0.40 L Estimated GFR > 60.0 BUN/Creatinine Ratio 15.0 Glucose 301 H Calcium 8.7 Magnesium 1.8 Total Bilirubin 0.3 AST 14 ALT 33 Alkaline Phosphatase 97 Total Protein 5.8 L Albumin 3.0 L Globulin 2.8 Albumin/Globulin Ratio 1.1 Assessment & Plan Plan: Assessment/Plan Narrative: 1. Fever - Resolved - Suspecting infected pancreatic pseudocyst - No longer febrile since admission - Leukocytosis worsening, 12.6 today. Really needs to get cyst drained - CT abd/pelvis reviewed: Along the pancreatic neck, body and tail cystic structures have developed the largest of which is adjacent to the anterior upper border of the pancreatic neck , measuring up to 11.2 cm in dimension. Pancreatic pseudocysts are considered the most likely cause. 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 - [facility] contacted again for transfer because patient likely needs pseudocyst drainage, but unfortunately no beds available at this time - Will continue pain control with Morphine - Nausea/vomiting control with zofran/reglan/ativan - Continue Zosyn/Vancomycin - CLD if patient tolerates - pending blood cultures 2. 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 Neuroendocrine tumor - With mets to [place], s/p whipple procedure and removal - Patient is on chronic monthly Octreatide therapy 5. Hx. Of Pheochromocytoma, benign - S/p adrenal resection, now on hormone replacement therapy 6. Hypokalemia - replete electrolytes and monitor 7. Uterine fibroids - with heavy menses - continue medroxyprogesterone 8. HTN - BP stable - Continue amlodipine and lisinopril 25 min spent evaluating and providing care to this patient Quality VTE Deep Vein Thrombosis/Pulmonary Embolism Present on Admission: No
[2018-08-28] MEDS: SODIUM CHLORIDE 0.9% 1,000 ML 100 ML IV (19:46)
[2018-08-28] MEDS: POTASSIUM CHLORIDE 20 MEQ TAB 80 MEQ PO (19:48)
[2018-08-29] VITALS (7 sets, daily range): BP systolic 156–160; BP diastolic 90–96; PULSE 66–90; RESP 16–20; TEMP 36.5–37.1; O2SAT 96–99
[2018-08-29] MEDS: LORazepam 2 MG/ML SYRINGE 1 MG IV (00:45)
[2018-08-29] MEDS: AMPICILLIN/SULBACTAM 3 GM 3 GM in SODIUM CHLORIDE 0.9% 100 ML IV ×4 (02:40→19:36)
--- NOTE | 2018-08-29 04:49 | PC.NURSE ---
Lamp Shade Maker Note: 0030: Awake, assisted up to bedside commode. Vital signs stable. IV in place in rt AC with NS infusing at 100cc/hr. Pt remains on telemetry. 0045: Pt having nausea; medicated with Ativan 1mg IV.
[2018-08-29] MEDS: SODIUM CHLORIDE 0.9% 1,000 ML 100 ML IV ×2 (06:17→18:38)
[2018-08-29 06:36] LABS: Blood Urea Nitrogen 4 mg/dL (7-17); Calcium 8.6 mg/dL (8.4-10.2); Carbon Dioxide 35 mmol/L (22-32); Chloride 95 mmol/L (98-107); Estimated Glomerular Filt Rate > 60.0 mL/min (>60); Glucose 190 mg/dL (70-100); HEMOLYSIS < 15 (0-50); Potassium 3.2 mmol/L (3.4-5.1); Sodium 138 mmol/L (137-145)
[2018-08-29 06:52] LABS: Add Manual Diff / Slide Review NO; Basophils Percent Auto 0.4 % (0-2); Eosinophils Percent Auto 0.3 % (2-4); Hematocrit 35.9 % (36-46); Hemoglobin 11.7 g/dL (12.0-16.0); Lymphocytes Percent Auto 9.6 % (25-40); Mean Corpuscular HGB Conc 32.7 % (30-36); Mean Corpuscular Hemoglobin 25.9 PG (26-34); Mean Corpuscular Volume 79.1 fL (80-100); Monocytes Percent Auto 7.6 % (3-14); Neutrophils Absolute Auto 11400 /uL (3000-5900); Neutrophils Percent Auto 82.1 % (50-75); Platelet Count 459 X10^3/uL (150-400); Red Blood Cell Count 4.54 X10^6/uL (4.0-5.2); Red Cell Distribution Width 16.2 % (11.6-14.8); White Blood Cell Count 13.9 X10^3/uL (4.5-11.0)
[2018-08-29] MEDS: METOCLOPRAMIDE 10 MG/2 ML INJ 5 MG IV (08:22)
[2018-08-29] MEDS: MORPHINE 2 MG/ML INJ IV (08:26)
[2018-08-29] MEDS: HYDROCORTISONE 10 MG TABLET 20 MG PO ×3 (09:21→20:16)
[2018-08-29] MEDS: MEDROXYPROGESTERONE ACETATE 10 MG TABLET PO (09:21)
[2018-08-29] MEDS: FLUDROCORTISONE 0.1 MG TABLET PO (09:22)
[2018-08-29] MEDS: LISINOPRIL 20 MG TABLET 40 MG PO (09:22)
[2018-08-29] MEDS: AMLODIPINE 5 MG TABLET 10 MG PO (09:22)
[2018-08-29] MEDS: INSULIN GLARGINE 100 UNIT/ML 3ML PEN 12 UNIT SUBCUT (09:24)
[2018-08-29] MEDS: PANTOPRAZOLE 40 MG VIAL IV (09:25)
[2018-08-29] MEDS: ENOXAPARIN 40 MG/0.4 ML SYRINGE SUBCUT (09:25)
--- NOTE | 2018-08-29 11:08 | PC.NURSE ---
AM NOTE - pt drowsy, easily awakens, appears tired and when sitting up does moan, states has abd cramping, continues w/underlying nausea, given 5mg iv reglan this am, declines clears at this time, able swallow meds with sips water, standby assist up to bsc w/void, ret to bed, given 2mg iv morphine for abd discomfort 5 on scale 0/10.
[2018-08-29] MEDS: INSULIN ASPART 100 UNIT/ML INSULN PEN SUBCUT ×2 (12:08→16:45)
[2018-08-29] MEDS: LORazepam 1 MG TABLET PO ×2 (15:15→20:16)
--- NOTE | 2018-08-29 16:15 | PM.DS.1 ---
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 Patient stated the symptoms began about a week prior to admission, with increasing severity in nausea, vomiting, and daily fevers. Patient also noted to have severe epigastric pain, that has also been increasing in severity. Of note, patient was diagnosed with acute pancreatitis and sepsis June 2018 at , after which she has developed pseudocysts. She has been followed by outpatient GI specialist who have been making arrangements for drainage of her pseudocyst. Nevertheless, patient's condition continued to worsen over the week prior to admission and she came into emergency department. She denied any loss of consciousness, blurry vision, dizziness. She denied any diarrhea or constipation. She has not been tolerating p.o. very well due to nausea and vomiting for the past 48 hr prior to admission. She denied any shortness of breath or chest pain. Discharge Providers Date of admission: 08/26/18 21:03 Primary care physician: Mesha Parker PA-C Discharge provider: Margaret Rodriguez MD Discharge Date: 08/29/18 Summary Discharge Diagnosis: Infected pancreatic pseudocyst Fever, resolved Diabetes type 2, due to whipple procedure Adrenal insufficiency, from bilateral adrenal resection from pheochromocytoma Neuroendocrine tumor with metastasis to liver status post Whipple procedure History of pheochromocytoma, benign Hyperkalemia, chronic Hypertension History of recent pancreatitis with development of pseudocyst Hospital Course: In the emergency department patient's vital signs Gaurav following: Temperature 101.5? F, pulse 112, respiratory rate 20, blood pressure 154/88, pulse oximetry 98% on room air. Patient appeared ill and lethargic. Lab work revealed a WBC of 10.7, hemoglobin 12.1, hematocrit 38.2, platelets 494. Sodium 140, potassium 2.7, chloride 92, bicarb 37, BUN 8, creatinine 0.6, glucose 180. Procalcitonin was 0.15, lactic acid was 1.4. UA negative for infection. LFTs were benign with exception of alk-phos, which was 130. Lipase was 133. Flu panel was negative. Chest x-ray revealed no acute cardiopulmonary disease. CT abdomen pelvis revealed development of cystic structures along the pancreatic neck, body, and tail, suggesting pancreatic pseudocyst. The largest of the cyst measured 11.2 cm. Patient was given dexamethasone 1 dose as she has not been taking her steroids at home due to poor p.o. intake. She was also given vancomycin and Zosyn, IV fluids, and transferred to medical surgical floor while awaiting transfer to tertiary center for further management. On the floor, patient's potassium has been replaced. Vancomycin and Zosyn, as well as IV fluids were continued. Patient was placed on clear liquid diet, which she tolerated well. Blood cultures were drawn which, up to date are negative. Nausea was controlled with Zofran, Reglan, Ativan. Pain was controlled with morphine. Patient's diabetes was controlled with sliding scale and basal insulin home dose Adrenal insufficiency was addressed with resumption of hydrocortisone and fludrocortisone Hypokalemia was addressed with frequent repletion of potassium Uterine fibroids were dressed with continuation of medroxyprogesterone Hypertension was managed with home medications of amlodipine and lisinopril Over the course of his 3 day stay at [facility], patient's condition has not improved, and she continued to have nausea, vomiting, epigastric pain. Her fevers have resolved, but WBCs continue to increase, with the most recent 1 at 13.9. [facility] has been contacted then, and Dr. Ethel Alvarez, Hospitalist, as well as GI specialist Dr. Dupree accepted patient's transfer. She will be going to [facility] as soon as the bed availability opens up. Status at Discharge Overall status at discharge: patient is not back to baseline Time Spent with Patient Greater than 30 minutes Exam Vital Signs (past 8 hours): - 08/29/18 11:44 08/29/18 15:40 Temperature 98.7 F 97.7 F Pulse Rate 71 90 Respiratory Rate 18 20 Blood Pressure 160/96 H 156/91 H Pulse Oximetry 96 97 Oxygen Delivery Method Room Air Oxygen Flow Rate 0 Narrative Exam Narrative: Gen: NAD, AAOx3 HEENT: PERRLA BL Neck: Supple, no LAD CV: RRR, no murmurs Resp: CTA BL, no wheezing GI: Tenderness to deep palpation in epigastric region. +BS, no organomegally MSK: Normal ROM, patient is able to get out of bed to use commode Skin: No edema or bruising Neuro: NFD, CN II-XII intact Psych: Mood appropriate although slightly depresse Objective Labs Result Diagrams: 08/29/18 06:11 08/29/18 06:11 Labs: Laboratory Results - last 24 hr 08/29/18 08/29/18 06:11 06:11 WBC 13.9 H RBC 4.54 Hgb 11.7 L Hct 35.9 L MCV 79.1 L MCH 25.9 L MCHC 32.7 RDW 16.2 H Plt Count 459 H Neut % (Auto) 82.1 H Lymph % (Auto) 9.6 L Long % (Auto) 7.6 Eos % (Auto) 0.3 L Baso % (Auto) 0.4 Neut # (Auto) 27661 H Sodium 138 Potassium 3.2 L Chloride 95 L Carbon Dioxide 35 H BUN 4 L Creatinine 0.40 L Estimated GFR > 60.0 BUN/Creatinine Ratio 10.0 Glucose 190 H D Calcium 8.6 Discharge Plan Discharge Plan Other facility: [facility] Transportation: Ambulance Discharge Med Rec/Prescriptions Prescriptions: Continue medroxyprogesterone 10 mg Tablet 10 mg PO DAILY RF: 0 insulin glargine [Lantus U-100 Insulin] 100 unit/mL Solution 12 unit SUBCUT DAILY RF: 0 simethicone 180 mg Capsule 180 mg PO DAILY RF: 0 aspirin [Aspir-81] 81 mg Tablet,Delayed Release (Dr/Ec) 81 mg PO DAILY RF: 0 ondansetron 8 mg Tablet,Disintegrating 8 mg PO Q8-12H PRN (Reason: Nausea) RF: 0 ascorbic acid (vitamin C) [Vitamin C] 500 mg Tablet 500 mg PO DAILY RF: 0 amlodipine 10 mg Tablet 10 mg PO DAILY RF: 0 ferrous sulfate [iron] 325 mg (65 mg iron) Tablet 325 mg PO DAILY RF: 0 ranitidine HCl 150 mg Tablet 150 mg PO PRN PRN (Reason: Heartburn) RF: 0 hydrocortisone 20 mg Tablet 20 mg PO TID RF: 0 omeprazole 20 mg Capsule,Delayed Release(Dr/Ec) 20 mg PO DAILY RF: 0 lisinopril 40 mg Tablet 40 mg PO DAILY RF: 0 fludrocortisone 0.1 mg Tablet 0.1 mg PO DAILY RF: 0 [id number] [Creon] 36,000-114,000- 180,000 unit Capsule,Delayed Release(Dr/Ec) 1 cap PO QD-TID RF: 0 methadone 10 mg Tablet 20 mg PO Q6H RF: 0 Discontinued glimepiride 4 mg Tablet 4 mg PO QAM RF: 0 oxycodone 10 mg Tablet 10 mg PO Q4-6H PRN (Reason: Pain (Scale Score 1-3)) RF: 0 Discharge Orders: Discharge (Order); Ordered 08/29/18 Ordered By: Margaret Rodriguez Provider Discharge Instructions Diet comment: CLEAR LIQUID DIET Discharge Data Primary Care Provider: Mesha Parker Attending Provider: Torsten Nichols Admit Date/Time: 08/26/18 21:03 Quality VTE Deep Vein Thrombosis/Pulmonary Embolism Present on Admission: No
--- NOTE | 2018-08-29 16:22 | P.DS_ITS ---
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 Patient stated the symptoms began about a week prior to admission, with increasing severity in nausea, vomiting, and daily fevers. Patient also noted to have severe epigastric pain, that has also been increasing in severity. Of note, patient was diagnosed with acute pancreatitis and sepsis June 2018 at , after which she has developed pseudocysts. She has been followed by outpatient GI specialist who have been making arrangements for drainage of her pseudocyst. Nevertheless, patient's condition continued to worsen over the week prior to admission and she came into emergency department. She denied any loss of consciousness, blurry vision, dizziness. She denied any diarrhea or constipation. She has not been tolerating p.o. very well due to nausea and vomiting for the past 48 hr prior to admission. She denied any shortness of breath or chest pain. Discharge Providers Date of admission: 08/26/18 21:03 Primary care physician: Mesha Parker PA-C Discharge provider: Margaret Rodriguez MD Discharge Date: 08/29/18 Summary Discharge Diagnosis: Infected pancreatic pseudocyst Fever, resolved Diabetes type 2, due to whipple procedure Adrenal insufficiency, from bilateral adrenal resection from pheochromocytoma Neuroendocrine tumor with metastasis to liver status post Whipple procedure History of pheochromocytoma, benign Hyperkalemia, chronic Hypertension History of recent pancreatitis with development of pseudocyst Hospital Course: In the emergency department patient's vital signs Gaurav following: Temperature 101.5? F, pulse 112, respiratory rate 20, blood pressure 154/88, pulse oximetry 98% on room air. Patient appeared ill and lethargic. Lab work revealed a WBC of 10.7, hemoglobin 12.1, hematocrit 38.2, platelets 494. Sodium 140, potassium 2.7, chloride 92, bicarb 37, BUN 8, creatinine 0.6, glucose 180. Procalcitonin was 0.15, lactic acid was 1.4. UA negative for infection. LFTs were benign with exception of alk-phos, which was 130. Lipase was 133. Flu panel was negative. Chest x-ray revealed no acute cardiopulmonary disease. CT abdomen pelvis revealed development of cystic structures along the pancreatic neck, body, and tail, suggesting pancreatic pseudocyst. The largest of the cyst measured 11.2 cm. Patient was given dexamethasone 1 dose as she has not been taking her steroids at home due to poor p.o. intake. She was also given vancomycin and Zosyn, IV fluids, and transferred to medical surgical floor while awaiting transfer to tertiary center for further management. On the floor, patient's potassium has been replaced. Vancomycin and Zosyn, as well as IV fluids were continued. Patient was placed on clear liquid diet, which she tolerated well. Blood cultures were drawn which, up to date are negative. Nausea was controlled with Zofran, Reglan, Ativan. Pain was controlled with morphine. Patient's diabetes was controlled with sliding scale and basal insulin home dose Adrenal insufficiency was addressed with resumption of hydrocortisone and fludrocortisone Hypokalemia was addressed with frequent repletion of potassium Uterine fibroids were dressed with continuation of medroxyprogesterone Hypertension was managed with home medications of amlodipine and lisinopril Over the course of his 3 day stay at [facility], patient's condition has not improved, and she continued to have nausea, vomiting, epigastric pain. Her fevers have resolved, but WBCs continue to increase, with the most recent 1 at 13.9. [facility] has been contacted then, and Dr. Ethel Alvarez, Hospitalist, as well as GI specialist Dr. Dupree accepted patient's transfer. She will be going to [facility] as soon as the bed availability opens up. Status at Discharge Overall status at discharge: patient is not back to baseline Time Spent with Patient Greater than 30 minutes Exam Vital Signs (past 8 hours): - 08/29/18 11:44 08/29/18 15:40 Temperature 98.7 F 97.7 F Pulse Rate 71 90 Respiratory Rate 18 20 Blood Pressure 160/96 H 156/91 H Pulse Oximetry 96 97 Oxygen Delivery Method Room Air Oxygen Flow Rate 0 Narrative Exam Narrative: Gen: NAD, AAOx3 HEENT: PERRLA BL Neck: Supple, no LAD CV: RRR, no murmurs Resp: CTA BL, no wheezing GI: Tenderness to deep palpation in epigastric region. +BS, no organomegally MSK: Normal ROM, patient is able to get out of bed to use commode Skin: No edema or bruising Neuro: NFD, CN II-XII intact Psych: Mood appropriate although slightly depresse Objective Labs Result Diagrams: 08/29/18 06:11 08/29/18 06:11 Labs: Laboratory Results - last 24 hr 08/29/18 08/29/18 06:11 06:11 WBC 13.9 H RBC 4.54 Hgb 11.7 L Hct 35.9 L MCV 79.1 L MCH 25.9 L MCHC 32.7 RDW 16.2 H Plt Count 459 H Neut % (Auto) 82.1 H Lymph % (Auto) 9.6 L [place] % (Auto) 7.6 Eos % (Auto) 0.3 L Baso % (Auto) 0.4 Neut # (Auto) 50207 H Sodium 138 Potassium 3.2 L Chloride 95 L Carbon Dioxide 35 H BUN 4 L Creatinine 0.40 L Estimated GFR > 60.0 BUN/Creatinine Ratio 10.0 Glucose 190 H D Calcium 8.6 Discharge Plan Discharge Plan Other facility: [facility] Transportation: Ambulance Discharge Med Rec/Prescriptions Prescriptions: Continue medroxyprogesterone 10 mg Tablet 10 mg PO DAILY RF: 0 insulin glargine [Lantus U-100 Insulin] 100 unit/mL Solution 12 unit SUBCUT DAILY RF: 0 simethicone 180 mg Capsule 180 mg PO DAILY RF: 0 aspirin [Aspir-81] 81 mg Tablet,Delayed Release (Dr/Ec) 81 mg PO DAILY RF: 0 ondansetron 8 mg Tablet,Disintegrating 8 mg PO Q8-12H PRN (Reason: Nausea) RF: 0 ascorbic acid (vitamin C) [Vitamin C] 500 mg Tablet 500 mg PO DAILY RF: 0 amlodipine 10 mg Tablet 10 mg PO DAILY RF: 0 ferrous sulfate [iron] 325 mg (65 mg iron) Tablet 325 mg PO DAILY RF: 0 ranitidine HCl 150 mg Tablet 150 mg PO PRN PRN (Reason: Heartburn) RF: 0 hydrocortisone 20 mg Tablet 20 mg PO TID RF: 0 omeprazole 20 mg Capsule,Delayed Release(Dr/Ec) 20 mg PO DAILY RF: 0 lisinopril 40 mg Tablet 40 mg PO DAILY RF: 0 fludrocortisone 0.1 mg Tablet 0.1 mg PO DAILY RF: 0 [id number] [Creon] 36,000-114,000- 180,000 unit Capsule,Delayed Release(Dr/Ec) 1 cap PO QD-TID RF: 0 methadone 10 mg Tablet 20 mg PO Q6H RF: 0 Discontinued glimepiride 4 mg Tablet 4 mg PO QAM RF: 0 oxycodone 10 mg Tablet 10 mg PO Q4-6H PRN (Reason: Pain (Scale Score 1-3)) RF: 0 Discharge Orders: Discharge (Order); Ordered 08/29/18 Ordered By: Margaret Rodriguez Provider Discharge Instructions Diet comment: CLEAR LIQUID DIET Discharge Data Primary Care Provider: Mesha Parker Attending Provider: Torsten Nichols Admit Date/Time: 08/26/18 21:03 Quality VTE Deep Vein Thrombosis/Pulmonary Embolism Present on Admission: No
[2018-08-29] MEDS: POTASSIUM CHLORIDE 20 MEQ TAB 80 MEQ PO (17:04)
[2018-08-29] MEDS: MAGNESIUM CHLORIDE 64 MG TABLET 128 MG PO (18:31)
--- NOTE | 2018-08-29 18:53 | PC.NURSE ---
Addendum entered by Kelsey Edwards R.N. 08/29/18 21:11: notified that bed available at . MD to talk to pt and pt prefers to be transferred to . report given to GUEVARA Jacinto. pt off unit via [facility] at approximately 2028. Original Note: TRANSFER Received pt returning from bathroom, c/o nausea but no emesis. PRN PO ativan given per JAN. pt able to tolerate P omeds and small sips of clear liquids. c/o tenderness to lower abdomen and lower L back area. pt with urinary urgency due to maintenance IV fluids, requires SBA for transfer to the BS. Per report, no beds available at where pt's current oncologist and GI specialist is located. plan to transfer pt to [facility] once bed available. report given to GUEVARA Berg at [facility] at approximately 1850. pt scheduled to be picked up via ambulance at approximately 2000, pt notified and verbalized understanding. call light within reach. currently awaiting transfer.
== END 2018-08-29 20:30 | disposition short-term general hospital (02) | DRG 282 ==
LOC: ED 20:14 → AC 08-27 07:20
PROVIDERS: Emergency Medicine; Internal Medicine; Admitting Provider Internal Medicine; Emergency Provider Emergency Medicine; Family Provider Physician Assistant; PCP Physician Assistant; Visit Provider Internal Medicine
DX: K86.3 Pseudocyst of pancreas (principal); E87.6 Hypokalemia; Q85.8 Other phakomatoses, not elsewhere classified; E89.1 Postprocedural hypoinsulinemia; E13.9 Other specified diabetes mellitus without complications; Z90.411 Acquired partial absence of pancreas; E27.3 Drug-induced adrenocortical insufficiency; C7A.8 Other malignant neuroendocrine tumors; C7B.8 Other secondary neuroendocrine tumors; K86.1 Other chronic pancreatitis; F11.20 Opioid dependence, uncomplicated; F17.210 Nicotine dependence, cigarettes, uncomplicated; I10 Essential (primary) hypertension; G89.3 Neoplasm related pain (acute) (chronic); R50.9 Fever, unspecified
CPT/HCPCS: 36415; 36591; 71045; 74177; 80048; 80053; 81001; 81003; 82962; 83605; 83690; 83735; 84145; 85025; 85610; 85730; 87040; 87400; 93005; 93010; 94762; 96361; 96365; 96367; 96374; 96375; 99283; 99284; 99285; 99406; C9113; J0295; J1100; J1170; J1650; J2060; J2270; J2405; J2543; J2765; J3370; J3480; Q9967

== ENCOUNTER 2019-04-08 20:25 | Emergency (ER) | payer OTHER, MEDICAID, SELFPAY ==
[2018-08-26 22:30] VITALS: BMI 23.8
[2019-04-08 20:34] VITALS: BP 123/80; PULSE 74; RESP 18; TEMP 36.8; O2SAT 94; BMI 22.8
--- NOTE | 2019-04-08 20:40 | DI.RAD.S_ITS ---
PROCEDURE: XR CHEST 2V INDICATIONS: fever,cough TECHNIQUE: 2 views of the chest were acquired. COMPARISON: [facility], PATRICIO, XR CHEST 1V, 08/25/2018, 20:03. [facility], CR, CHEST 1 VIEW, 11/17/2007, 9:37. FINDINGS: Surgical changes and devices: Stimulator leads and extensive surgical clips project over the upper abdomen. Lungs and pleura: There is prominence of the pulmonary vasculature bilaterally. Minimal linear opacities are noted at the right lung base. No focal consolidations are identified. No pleural effusions or pneumothorax. Mediastinum: Mediastinal contours are normal. Heart size is normal. Bones and chest wall: Chronic deformity of the lateral aspect of the right fifth rib is similar in appearance to prior exam. Moderate multilevel degenerative changes of the thoracic spine are noted as well as chronic-appearing deformity of a lower thoracic vertebral body. There is a small bowel loop projecting lateral to the right abdominal flank wall, which may represent the sequela of postsurgical change or a right flank wall hernia. IMPRESSION: Minimal right basilar pulmonary opacities most consistent with atelectasis versus parenchymal scarring. No convincing focal pulmonary consolidations consistent with pneumonia. Dictated by: Ronnie Lewis M.D. on 04/08/2019 at 22:51 Approved by: Ronnie Lewis M.D. on 04/08/2019 at 22:54
--- NOTE | 2019-04-08 22:01 | ED.URI ---
HPI - URI/Sore Throat General Chief Complaint: Upper Respiratory Symptoms Stated Complaint: FEVER, CONGESTION Time Seen by Provider: 04/08/19 22:01 Source: patient Mode of arrival: ambulatory Limitations: no limitations History of Present Illness HPI Narrative: Patient is a 49-year-old female. 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 She is not currently undergoing chemotherapy or radiation. She states for the past couple days she has had an upper respiratory infection of the sore throat. She started having coughing with a green sputum production. She did have fever yesterday which was controlled with Motrin. None today. She also states she feels a little lightheaded which is when she feels like when she is not taking enough hydrocortisone. She does manage and adrenal insufficiency at home with hydrocortisone. 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 Related Data Home Medications Medication Instructions Recorded Confirmed amlodipine 10 mg PO DAILY 08/26/18 08/26/18 ascorbic acid (vitamin C) [Vitamin 500 mg PO DAILY 08/26/18 08/26/18 C] aspirin [Aspir-81] 81 mg PO DAILY 08/26/18 08/26/18 ferrous sulfate [iron] 325 mg PO DAILY 08/26/18 08/26/18 fludrocortisone 0.1 mg PO DAILY 08/26/18 08/26/18 glimepiride 4 mg PO QAM 08/26/18 08/26/18 hydrocortisone 20 mg PO TID 08/26/18 08/26/18 insulin glargine [Lantus U-100 12 unit SUBCUT DAILY 08/26/18 08/26/18 Insulin] [id number] [Creon] 1 cap PO QD-TID 08/26/18 08/26/18 lisinopril 40 mg PO DAILY 08/26/18 08/26/18 medroxyprogesterone 10 mg PO DAILY 08/26/18 08/26/18 methadone 20 mg PO Q6H 08/26/18 08/26/18 omeprazole 20 mg PO DAILY 08/26/18 08/26/18 ondansetron 8 mg PO Q8-12H PRN 08/26/18 08/26/18 oxycodone 10 mg PO Q4-6H PRN 08/26/18 08/26/18 ranitidine HCl 150 mg PO PRN PRN 08/26/18 08/26/18 simethicone 180 mg PO DAILY 08/26/18 08/26/18 Previous Rx's Medication Instructions Recorded fluconazole [Diflucan] 100 mg PO DAILY #2 tab 04/08/19 Allergies Allergy/AdvReac Type Severity Reaction Status Date / Time Sulfa (Sulfonamide Allergy Intermediate Verified 08/25/18 19:54 Antibiotics) [SULFA (SULFONAMIDE ANTIBIOTICS)] Review of Systems Constitutional Reports fever(s) and Denies headache(s) ENT Ears, Nose, Mouth, and Throat: Denies dental pain, Denies ear discharge, Denies headache(s), Denies neck pain, Reports disequilibrium, Reports sinus pressure and Denies sore throat Cardiovascular Denies chest pain, Denies palpitations and Denies dyspnea Respiratory Reports chest congestion, Reports cough and Denies dyspnea Gastrointestinal Gastrointestinal: Denies abdominal pain and Denies change in stool character Musculoskeletal Denies myalgias, Denies arthralgias and Denies neck pain Integumentary/Breasts Denies rash Neurologic Denies headache(s) and Reports disequilibrium Endocrine Denies palpitations [facility] Medical History Chronic adrenal insufficiency (Acute) Pheochromocytoma (Acute) 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) Social History household members: spouse Smoking Status: Current some day smoker Exam Initial Vital Signs Initial Vital Signs: Vital Signs Temperature 98.3 F 04/08/19 20:34 Pulse Rate 74 04/08/19 20:34 Respiratory Rate 18 04/08/19 20:34 Blood Pressure 123/80 04/08/19 20:34 Pulse Oximetry 94 04/08/19 20:34 Const General: cooperative, well developed, well groomed and No acute distress Orientation: alert, awake and oriented x3 HENMT Head: normal to inspection and normocephalic Ears: TM's normal bilaterally Nose: external nose normal Face and sinus: normal facial exam Mouth: oral mucosae normal Teeth and gingiva: dentition normal Throat: posterior oropharynx normal Resp Effort & Inspection: normal respiratory effort Auscultation: clear to auscultation bilaterally Cardio Rate: regular rate GI Inspection: non-distended Palpation: soft Skin Lesions: no lesions Rashes: no rashes Neuro General: alert, awake and oriented x3 Cognition: normal cognition Speech: speech normal Extrem General: normal to inspection and capillary refill normal Psych Appearance: grossly normal and well kempt Course Orders Ordered: ED Orders 04/08/19 20:40 Chest [XR chest 2V] Stat 04/08/19 22:51 Complete Blood Count AUTO DIFF Stat Comprehensive Metabolic Panel Stat Lipase Stat Vital Signs - 8 hr 04/08/19 20:34 Temperature 98.3 F Pulse Rate 74 Respiratory Rate 18 Blood Pressure 123/80 Pulse Oximetry 94 MDM - URI/Sore Throat Lab Data Attestation: I reviewed the patient's lab results. Result diagrams: 04/08/19 22:51 04/08/19 22:51 Lab Results 04/08/19 04/08/19 Range/Units 22:51 22:51 WBC 10.5 (4.5-11.0) X10^3/uL RBC 4.65 (4.0-5.2) X10^6/uL Hgb 12.8 (12.0-16.0) g/dL Hct 38.9 (36-46) % MCV 83.7 (80-100) fL MCH 27.6 (26-34) PG MCHC 33.0 (30-36) % RDW 15.5 H (11.6-14.8) % Plt Count 297 (150-400) X10^3/uL Neut % (Auto) 89.1 H (50-75) % Lymph % (Auto) 5.9 L (25-40) % [place] % (Auto) 4.8 (3-14) % Eos % (Auto) 0.0 L (2-4) % Baso % (Auto) 0.2 (0-2) % Neut # (Auto) 9300 H (2558-0893) /uL Lymph # (Auto) 600 L (2452-1551) /uL [place] # (Auto) 500 (0-900) /uL Eos # (Auto) 0 (0-450) /uL Baso # (Auto) 0 (0-100) /uL Sodium 136 L (137-145) mmol/L Potassium 3.3 L (3.4-5.1) mmol/L Chloride 92 L (98-107) mmol/L Carbon Dioxide 36 H (22-32) mmol/L BUN 12 (7-17) mg/dL Creatinine 0.60 (0.52-1.04) mg/dL Estimated GFR > 60.0 (>60) mL/min BUN/Creatinine Ratio 20.0 (6-22) Glucose 348 H (70-100) mg/dL Calcium 8.5 (8.4-10.2) mg/dL Total Bilirubin 0.9 (0.2-1.3) mg/dL AST 19 (14-36) IU/L ALT 25 (9-52) IU/L Alkaline Phosphatase 91 (38-126) U/L Total Protein 6.2 L (6.3-8.2) g/dL Albumin 3.4 L (3.5-5.0) g/dL Globulin 2.8 (1.7-4.1) g/dL Albumin/Globulin Ratio 1.2 (1.0-2.8) Lipase 21 L (23-300) U/L Imaging Data Chest x-ray: Radiologist's impression: [address] [address] XRay Report Signed Patient: Keerthi Everett#: [id number] : 1970Acct:[id number] Age/Sex: 49 / FDate of Service: 04/08/19 Loc: ED Accession Number: [id number] Procedure: XR chest 2V Ordering Provider: Tobias Scherer D.O. PROCEDURE: XR CHEST 2V INDICATIONS: fever,cough TECHNIQUE: 2 views of the chest were acquired. COMPARISON: [facility], XR CHEST 1V, 08/25/2018, 20:03. [facility], CHEST 1 VIEW, 11/17/2007, 9:37. FINDINGS: Surgical changes and devices: Stimulator leads and extensive surgical clips project over the upper abdomen. Lungs and pleura: There is prominence of the pulmonary vasculature bilaterally. Minimal linear opacities are noted at the right lung base. No focal consolidations are identified. No pleural effusions or pneumothorax. Mediastinum: Mediastinal contours are normal. Heart size is normal. Bones and chest wall: Chronic deformity of the lateral aspect of the right fifth rib is similar in appearance to prior exam. Moderate multilevel degenerative changes of the thoracic spine are noted as well as chronic-appearing deformity of a lower thoracic vertebral body. There is a small bowel loop projecting lateral to the right abdominal flank wall, which may represent the sequela of postsurgical change or a right flank wall hernia. IMPRESSION: Minimal right basilar pulmonary opacities most consistent with atelectasis versus parenchymal scarring. No convincing focal pulmonary consolidations consistent with pneumonia. Dictated by: Ronnei Lewis M.D. on 04/08/2019 at 22:51 Approved by: Ronnie Lewis M.D. on 04/08/2019 at 22:54 [facility] Narrative Medical decision making narrative: Patient is afebrile. Not in any respiratory distress. Chest x-ray is negative for pneumonia. She does have what appears to be an upper respiratory infection. No indication for antibiotics. She is not immunosuppressed. Labs were drawn because she was having left upper quadrant pain. Her lipase is unremarkable. She was hyperglycemic but she attributes that to the sugary coffee drink that she has been drinking and is sitting at bedside. We did discuss her hydrocortisone and stated that during times of illness she may need to increase her cortisone does. She states she normally does that is she did not take a higher dose this evening. We did discuss the use of decongestants. She was given a prescription for Diflucan because she stated that earlier today she felt like she was getting which she thought was thrush. She has had this in the past. She states that normally 2 doses of Diflucan work for her. She has 1 or 2 white patches in her mouth on the soft palate however does not confirm been sitting for a diagnosis of thrush however will give her prescription that she could use if the symptoms continue. She was given strict return precautions and follow-up instructions. The patient expressed understanding and agreement with plan. Discharge Plan Departure Patient Disposition: Home Clinical Impression: Upper respiratory infection Qualifiers: URI type: unspecified URI Qualified Code(s): J06.9 - Acute upper respiratory infection, unspecified Discharge Date/Time: 04/08/19 23:21 Interventions: ED Discharge Assessment Last Done: 04/08/19 23:20 Instructions: Antihistamine/Decongestant (By mouth) Activity Restrictions/Additional Instructions: Continue all of your medications as directed. I recommend you start taking either Claritin or Kiersten or Zyrtec were the generic version of these medications as directed. Contact your primary care provider for follow-up. Return to the emergency department for any new or worsening symptoms Prescriptions: New fluconazole [Diflucan] 100 mg tablet 100 mg PO DAILY Qty: 2 RF: 0 No Action medroxyprogesterone 10 mg Tablet 10 mg PO DAILY RF: 0 insulin glargine [Lantus U-100 Insulin] 100 unit/mL Solution 12 unit SUBCUT DAILY RF: 0 simethicone 180 mg Capsule 180 mg PO DAILY RF: 0 aspirin [Aspir-81] 81 mg Tablet,Delayed Release (Dr/Ec) 81 mg PO DAILY RF: 0 ondansetron 8 mg Tablet,Disintegrating 8 mg PO Q8-12H PRN (Reason: Nausea) RF: 0 ascorbic acid (vitamin C) [Vitamin C] 500 mg Tablet 500 mg PO DAILY RF: 0 amlodipine 10 mg Tablet 10 mg PO DAILY RF: 0 ferrous sulfate [iron] 325 mg (65 mg iron) Tablet 325 mg PO DAILY RF: 0 ranitidine HCl 150 mg Tablet 150 mg PO PRN PRN (Reason: Heartburn) RF: 0 glimepiride 4 mg Tablet 4 mg PO QAM RF: 0 hydrocortisone 20 mg Tablet 20 mg PO TID RF: 0 omeprazole 20 mg Capsule,Delayed Release(Dr/Ec) 20 mg PO DAILY RF: 0 lisinopril 40 mg Tablet 40 mg PO DAILY RF: 0 fludrocortisone 0.1 mg Tablet 0.1 mg PO DAILY RF: 0 [id number] [Creon] 36,000-114,000- 180,000 unit Capsule,Delayed Release(Dr/Ec) 1 cap PO QD-TID RF: 0 methadone 10 mg Tablet 20 mg PO Q6H RF: 0 oxycodone 10 mg Tablet 10 mg PO Q4-6H PRN (Reason: Pain (Scale Score 1-3)) RF: 0 Referrals: Mesha Parker PA-C [Primary Care Provider] -
[2019-04-08 23:05] LABS: Add Manual Diff / Slide Review NO; Basophils Absolute Auto 0 /uL (0-100); Basophils Percent Auto 0.2 % (0-2); Eosinophils Absolute Auto 0 /uL (0-450); Hematocrit 38.9 % (36-46); Hemoglobin 12.8 g/dL (12.0-16.0); Lymphocytes Absolute Auto 600 /uL (1100-4500); Lymphocytes Percent Auto 5.9 % (25-40); Mean Corpuscular Hemoglobin 27.6 PG (26-34); Mean Corpuscular Volume 83.7 fL (80-100); Monocytes Absolute Auto 500 /uL (0-900); Monocytes Percent Auto 4.8 % (3-14); Neutrophils Absolute Auto 9300 /uL (1500-7000); Neutrophils Percent Auto 89.1 % (50-75); Platelet Count 297 X10^3/uL (150-400); Red Blood Cell Count 4.65 X10^6/uL (4.0-5.2); Red Cell Distribution Width 15.5 % (11.6-14.8); White Blood Cell Count 10.5 X10^3/uL (4.5-11.0)
[2019-04-08 23:11] LABS: Alanine Aminotransferase 25 IU/L (9-52); Albumin 3.4 g/dL (3.5-5.0); Albumin Globulin Ratio 1.2 (1.0-2.8); Alkaline Phosphatase 91 U/L (38-126); Aspartate Aminotransferase 19 IU/L (14-36); Bilirubin Total 0.9 mg/dL (0.2-1.3); Blood Urea Nitrogen 12 mg/dL (7-17); Calcium 8.5 mg/dL (8.4-10.2); Carbon Dioxide 36 mmol/L (22-32); Chloride 92 mmol/L (98-107); Estimated Glomerular Filt Rate > 60.0 mL/min (>60); Globulin 2.8 g/dL (1.7-4.1); Glucose 348 mg/dL (70-100); HEMOLYSIS < 15 (0-50); Lipase 21 U/L (23-300); Potassium 3.3 mmol/L (3.4-5.1); Sodium 136 mmol/L (137-145); Total Protein 6.2 g/dL (6.3-8.2)
== END 2019-04-08 23:21 | disposition home or self-care (01) ==
PROVIDERS: Emergency Provider Emergency Medicine; Family Provider Physician Assistant; PCP Physician Assistant
DX: J06.9 Acute upper respiratory infection, unspecified (principal)
CPT/HCPCS: 36415; 71046; 80053; 83690; 85025; 99282; 99284

== ENCOUNTER 2020-07-09 17:55 | Emergency (ER) | payer OTHER, MEDICAID, SELFPAY ==
[2018-08-26 22:30] VITALS: BMI 23.8
[2020-07-09 18:02] VITALS: BP 164/103; PULSE 80; RESP 16; TEMP 36.7; O2SAT 100; BMI 19.4
[2020-07-09 19:00] LABS: RBC Urine None Seen (0-5/HPF)
[2020-07-09 19:11] LABS: Bacteria Urine Few (2-10); Culture Indicated Urine Specimen Cultured; Squamous Epithelial Cell Urine 1-5 /HPF (0-5/HPF); WBC Urine 5-10/HPF (0-5/HPF)
--- NOTE | 2020-07-09 19:42 | ED.GENADULT ---
HPI - General Adult General Chief complaint: Weakness Stated complaint: weak and shakey, low blood pressure Time Seen by Provider: 07/09/20 18:13 Source: patient Mode of arrival: Ambulatory Limitations: no limitations History of Present Illness HPI narrative: 50-year-old female with multiple chronic medical problems to include prior history is of GI bleeds requiring transfusions also history of adrenal insufficiency is on chronic steroids. Patient states she has not noticed any blood in her stool. She does state that she has feels somewhat weak. She states that she took her blood pressure earlier today and specifically when she was standing her blood pressure was low. She did take an extra dose of steroids today and wanted to bring her blood pressure up. She comes to the emergency department ?to get checked out ? Related Data Home Medications Medication Instructions Recorded Confirmed amlodipine 10 mg PO DAILY 08/26/18 08/26/18 ascorbic acid (vitamin C) [Vitamin 500 mg PO DAILY 08/26/18 08/26/18 C] aspirin [Aspir-81] 81 mg PO DAILY 08/26/18 08/26/18 ferrous sulfate [iron] 325 mg PO DAILY 08/26/18 08/26/18 fludrocortisone 0.1 mg PO DAILY 08/26/18 08/26/18 glimepiride 4 mg PO QAM 08/26/18 08/26/18 hydrocortisone 20 mg PO TID 08/26/18 08/26/18 insulin glargine [Lantus U-100 12 unit SUBCUT DAILY 08/26/18 08/26/18 Insulin] [id number] [Creon] 1 cap PO QD-TID 08/26/18 08/26/18 lisinopril 40 mg PO DAILY 08/26/18 08/26/18 medroxyprogesterone 10 mg PO DAILY 08/26/18 08/26/18 methadone 20 mg PO Q6H 08/26/18 08/26/18 omeprazole 20 mg PO DAILY 08/26/18 08/26/18 ondansetron 8 mg PO Q8-12H PRN 08/26/18 08/26/18 oxycodone 10 mg PO Q4-6H PRN 08/26/18 08/26/18 ranitidine HCl 150 mg PO PRN PRN 08/26/18 08/26/18 simethicone 180 mg PO DAILY 08/26/18 08/26/18 Previous Rx's Medication Instructions Recorded fluconazole [Diflucan] 100 mg PO DAILY #2 tab 04/08/19 Allergies Allergy/AdvReac Type Severity Reaction Status Date / Time Sulfa (Sulfonamide Allergy Intermediate Verified 07/09/20 18:02 Antibiotics) [SULFA (SULFONAMIDE ANTIBIOTICS)] Review of Systems Constitutional Constitutional: Reports fatigue, Denies fever(s) and Reports weakness ENT Ears, Nose, Mouth, and Throat: Denies vertigo, Denies dizziness and Reports disequilibrium Cardiovascular Cardiovascular: Denies chest pain and Denies dyspnea Respiratory Respiratory: Denies dyspnea Gastrointestinal Gastrointestinal: Denies abdominal pain, Denies melena, Denies change in bowel habits, Denies nausea and Denies vomiting Genitourinary Genitourinary: Denies dysuria Genitourinary: Denies dysuria Musculoskeletal Musculoskeletal: Denies arthralgias and Denies myalgias Integumentary/Breasts Skin/Breast: Denies lesions and Denies rash Neurologic Neurologic: Denies vertigo, Denies dizziness, Reports disequilibrium and Reports weakness Endocrine Endocrine: Reports fatigue Hematologic/Lymphatic Hematologic/Lymphatic: Denies easy bleeding and Denies easy bruising Allergic/Immunologic Allergic/Immunologic: Denies urticaria Patient History Medical History Chronic adrenal insufficiency (Acute) Pheochromocytoma (Acute) 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) Social History household members: spouse Smoking Status: Current some day smoker Smoking Status: Current some day smoker alcohol intake frequency: holidays/special occasions only Substance Use Type: does not use Exam Initial Vital Signs Initial Vital Signs: Vital Signs Temperature 98.1 F 07/09/20 18:02 Pulse Rate 80 07/09/20 18:02 Respiratory Rate 16 07/09/20 18:02 Blood Pressure 164/103 H 07/09/20 18:02 Pulse Oximetry 100 07/09/20 18:02 Const General: cooperative and comfortable Limitations: mental status not altered HENMT Head: normal to inspection and normocephalic Resp Effort & Inspection: normal respiratory effort Auscultation: clear to auscultation bilaterally Cardio Rate: regular rate Rhythm: regular rhythm GI Inspection: non-distended Palpation: soft Skin Lesions: no lesions Rashes: no rashes Extrem General: capillary refill normal and edema Psych Appearance: grossly normal and well kempt Course Orders Ordered: ED Orders 07/09/20 18:09 Urine Culture Stat Urine Microscopic Stat 07/09/20 18:15 EKG-12 Lead Stat 07/09/20 20:40 Complete Blood Count AUTO DIFF Stat Comprehensive Metabolic Panel Stat Ethanol (ETOH) Stat Lactate (Lactic Acid) Stat Lipase Stat Partial Thromboplastin Time Stat Procalcitonin Stat Prothrombin Time INR Stat Troponin & CK Cardiac Panel Stat Type and Screen Stat Vital Signs Vital signs: Vital Signs - 8 hr 07/09/20 18:02 07/09/20 21:38 07/09/20 22:02 Temperature 98.1 F Pulse Rate 80 72 Pulse Rate [Orthostatic Lying] 57 L Pulse Rate [Orthostatic Sitting] 77 Pulse Rate [Orthostatic Standing] 95 H Respiratory Rate 16 18 Blood Pressure 164/103 H 155/70 H Blood Pressure [Orthostatic Lying] 180/96 H Blood Pressure [Orthostatic Sitting] 185/108 H Blood Pressure [Orthostatic Standing] 184/85 H Pulse Oximetry 100 100 Medical Decision Making Medical Records Medical records reviewed: Yes I reviewed the patient's medical records. Lab Data Lab results reviewed: Yes I reviewed the patient's lab results. Result diagrams: 07/09/20 20:40 07/09/20 20:40 Labs: Lab Results 07/09/20 07/09/20 07/09/20 Range/Units 18:09 20:40 20:40 WBC 8.8 (4.5-11.0) X10^3/uL RBC 3.93 L (4.0-5.2) X10^6/uL Hgb 10.2 L (12.0-16.0) g/dL Hct 32.4 L (36-46) % MCV 82.4 (80-100) fL MCH 26.0 (26-34) PG MCHC 31.5 (30-36) % RDW 16.3 H (11.6-14.8) % Plt Count 564 H (150-400) X10^3/uL Neut % (Auto) 87.1 H (50-75) % Lymph % (Auto) 7.0 L (25-40) % [place] % (Auto) 5.4 (3-14) % Eos % (Auto) 0.0 L (2-4) % Baso % (Auto) 0.5 (0-2) % Neut # (Auto) 7600 H (4171-4788) /uL Lymph # (Auto) 600 L (9028-5563) /uL [place] # (Auto) 500 (0-900) /uL Eos # (Auto) 0 (0-450) /uL Baso # (Auto) 0 (0-100) /uL PT 11.3 (10.1-12.7) SECONDS INR 1.0 (0.9-1.3) APTT 24 L D (26.4-36.2) SECONDS Sodium (137-145) mmol/L Potassium (3.4-5.1) mmol/L Chloride (98-107) mmol/L Carbon Dioxide (22-32) mmol/L BUN (7-17) mg/dL Creatinine (0.52-1.04) mg/dL Estimated GFR (>60) mL/min BUN/Creatinine Ratio (6-22) Glucose (70-100) mg/dL Lactate (0.7-2.1) mmol/L Calcium (8.4-10.2) mg/dL Total Bilirubin (0.2-1.3) mg/dL AST (14-36) IU/L ALT (<35) IU/L Alkaline Phosphatase (38-126) U/L Total Creatine Kinase (30-135) U/L CK-MB (CK-2) CK-MB (CK-2) Rel Index Troponin I (0.01-0.034) ng/mL Total Protein (6.3-8.2) g/dL Albumin (3.5-5.0) g/dL Globulin (1.7-4.1) g/dL Albumin/Globulin Ratio (1.0-2.8) Lipase (23-300) U/L Procalcitonin (<0.5) ng/mL Urine RBC None seen (0-5/HPF) Urine WBC 5-10/hpf H (0-5/HPF) Ur Squamous Epith Cells 1-5 /hpf (0-5/HPF) Urine Bacteria Few (2-10) H (None) Ur Culture Indicated? Specimen cultured Ethyl Alcohol ( - 10) mg/dL Blood Type Antibody Screen 07/09/20 07/09/20 07/09/20 Range/Units 20:40 20:40 20:40 WBC (4.5-11.0) X10^3/uL RBC (4.0-5.2) X10^6/uL Hgb (12.0-16.0) g/dL Hct (36-46) % MCV (80-100) fL MCH (26-34) PG MCHC (30-36) % RDW (11.6-14.8) % Plt Count (150-400) X10^3/uL Neut % (Auto) (50-75) % Lymph % (Auto) (25-40) % [place] % (Auto) (3-14) % Eos % (Auto) (2-4) % Baso % (Auto) (0-2) % Neut # (Auto) (1244-1409) /uL Lymph # (Auto) (0233-2868) /uL [place] # (Auto) (0-900) /uL Eos # (Auto) (0-450) /uL Baso # (Auto) (0-100) /uL PT (10.1-12.7) SECONDS INR (0.9-1.3) APTT (26.4-36.2) SECONDS Sodium 134 L (137-145) mmol/L Potassium 4.3 (3.4-5.1) mmol/L Chloride 99 (98-107) mmol/L Carbon Dioxide 34 H (22-32) mmol/L BUN 16 (7-17) mg/dL Creatinine 0.64 (0.52-1.04) mg/dL Estimated GFR > 60.0 (>60) mL/min BUN/Creatinine Ratio 25.0 H (6-22) Glucose 156 H (70-100) mg/dL Lactate 1.0 (0.7-2.1) mmol/L Calcium 8.1 L (8.4-10.2) mg/dL Total Bilirubin 0.9 (0.2-1.3) mg/dL AST 27 (14-36) IU/L ALT 19 (<35) IU/L Alkaline Phosphatase 181 H (38-126) U/L Total Creatine Kinase 24 L (30-135) U/L CK-MB (CK-2) TNP CK-MB (CK-2) Rel Index TNP Troponin I < 0.012 (0.01-0.034) ng/mL Total Protein 5.7 L (6.3-8.2) g/dL Albumin 3.2 L (3.5-5.0) g/dL Globulin 2.5 (1.7-4.1) g/dL Albumin/Globulin Ratio 1.3 (1.0-2.8) Lipase 28 (23-300) U/L Procalcitonin < 0.05 (<0.5) ng/mL Urine RBC (0-5/HPF) Urine WBC (0-5/HPF) Ur Squamous Epith Cells (0-5/HPF) Urine Bacteria (None) Ur Culture Indicated? Ethyl Alcohol < 10 ( - 10) mg/dL Blood Type Antibody Screen 07/09/20 Range/Units 20:40 WBC (4.5-11.0) X10^3/uL RBC (4.0-5.2) X10^6/uL Hgb (12.0-16.0) g/dL Hct (36-46) % MCV (80-100) fL MCH (26-34) PG MCHC (30-36) % RDW (11.6-14.8) % Plt Count (150-400) X10^3/uL Neut % (Auto) (50-75) % Lymph % (Auto) (25-40) % [place] % (Auto) (3-14) % Eos % (Auto) (2-4) % Baso % (Auto) (0-2) % Neut # (Auto) (6455-5192) /uL Lymph # (Auto) (7187-0854) /uL [place] # (Auto) (0-900) /uL Eos # (Auto) (0-450) /uL Baso # (Auto) (0-100) /uL PT (10.1-12.7) SECONDS INR (0.9-1.3) APTT (26.4-36.2) SECONDS Sodium (137-145) mmol/L Potassium (3.4-5.1) mmol/L Chloride (98-107) mmol/L Carbon Dioxide (22-32) mmol/L BUN (7-17) mg/dL Creatinine (0.52-1.04) mg/dL Estimated GFR (>60) mL/min BUN/Creatinine Ratio (6-22) Glucose (70-100) mg/dL Lactate (0.7-2.1) mmol/L Calcium (8.4-10.2) mg/dL Total Bilirubin (0.2-1.3) mg/dL AST (14-36) IU/L ALT (<35) IU/L Alkaline Phosphatase (38-126) U/L Total Creatine Kinase (30-135) U/L CK-MB (CK-2) CK-MB (CK-2) Rel Index Troponin I (0.01-0.034) ng/mL Total Protein (6.3-8.2) g/dL Albumin (3.5-5.0) g/dL Globulin (1.7-4.1) g/dL Albumin/Globulin Ratio (1.0-2.8) Lipase (23-300) U/L Procalcitonin (<0.5) ng/mL Urine RBC (0-5/HPF) Urine WBC (0-5/HPF) Ur Squamous Epith Cells (0-5/HPF) Urine Bacteria (None) Ur Culture Indicated? Ethyl Alcohol ( - 10) mg/dL Blood Type A Positive Antibody Screen Negative Urine Dip Bedside Urine Glucose Negative Bedside Urine Bilirubin - Negative Bedside Urine Ketone - Negative Urine Specific [place] 1.020 Bedside Urine Occult Blood - Negative Bedside Urine pH 6.5 Bedside Urine Protein +/- 15 Bedside Urine Urobilinogen - Negative Bedside Urine Nitrite - Negative Bedside Urine Leukocytes + 70 Esterase Point of care testing: Urine Dip Bedside Urine Glucose Negative Bedside Urine Bilirubin - Negative Bedside Urine Ketone - Negative Urine Specific [place] 1.020 Bedside Urine Occult Blood - Negative Bedside Urine pH 6.5 Bedside Urine Protein +/- 15 Bedside Urine Urobilinogen - Negative Bedside Urine Nitrite - Negative Bedside Urine Leukocytes + 70 Esterase ECG Data Attestation: I personally reviewed and interpreted this ECG as follows: Prior ECG tracings: not available for review Interpretation: Sinus bradycardia Ventricular rate of 59 Normal axis Normal QRS Normal QTC No ST T wave changes MDM Narrative Medical decision making narrative: Patient is anemic however not to the point where she needs a transfusion. Patient's blood pressure did not change with her orthostatic blood pressure check however her heart rate did increase. Patient states that during that orthostatic blood pressure check here she felt fine. Patient was reassured after a discussion of her lab results. She wanted to make sure that she was not losing blood to the point where she needed another transfusion. Patient states she would like to go home. We will hold on further workup for now. She was given return precautions and follow-up instructions. She expressed understanding and agreement. Discharge Plan Departure Patient Disposition: Home Clinical Impression: Weakness Discharge Date/Time: 07/09/20 22:04 Instructions: DI for Orthostatic Hypotension Activity Restrictions/Additional Instructions: Continue all of your medications as directed. Be sure to keep all of your scheduled medical appointments. Return to the emergency department for any new or worsening symptoms Prescriptions: No Action medroxyprogesterone 10 mg Tablet 10 mg PO DAILY RF: 0 insulin glargine [Lantus U-100 Insulin] 100 unit/mL Solution 12 unit SUBCUT DAILY RF: 0 simethicone 180 mg Capsule 180 mg PO DAILY RF: 0 aspirin [Aspir-81] 81 mg Tablet,Delayed Release (Dr/Ec) 81 mg PO DAILY RF: 0 ondansetron 8 mg Tablet,Disintegrating 8 mg PO Q8-12H PRN (Reason: Nausea) RF: 0 ascorbic acid (vitamin C) [Vitamin C] 500 mg Tablet 500 mg PO DAILY RF: 0 amlodipine 10 mg Tablet 10 mg PO DAILY RF: 0 ferrous sulfate [iron] 325 mg (65 mg iron) Tablet 325 mg PO DAILY RF: 0 ranitidine HCl 150 mg Tablet 150 mg PO PRN PRN (Reason: Heartburn) RF: 0 glimepiride 4 mg Tablet 4 mg PO QAM RF: 0 hydrocortisone 20 mg Tablet 20 mg PO TID RF: 0 omeprazole 20 mg Capsule,Delayed Release(Dr/Ec) 20 mg PO DAILY RF: 0 lisinopril 40 mg Tablet 40 mg PO DAILY RF: 0 fludrocortisone 0.1 mg Tablet 0.1 mg PO DAILY RF: 0 srxywv-uvaxcczv-ojdhpaz [Creon] 36,000-114,000- 180,000 unit Capsule,Delayed Release(Dr/Ec) 1 cap PO QD-TID RF: 0 methadone 10 mg Tablet 20 mg PO Q6H RF: 0 oxycodone 10 mg Tablet 10 mg PO Q4-6H PRN (Reason: Pain (Scale Score 1-3)) RF: 0 fluconazole [Diflucan] 100 mg tablet 100 mg PO DAILY Qty: 2 RF: 0 Referrals: Mesha Parker PA-C [Primary Care Provider] -
[2020-07-09 20:52] LABS: Add Manual Diff / Slide Review NO; Basophils Absolute Auto 0 /uL (0-100); Basophils Percent Auto 0.5 % (0-2); Eosinophils Absolute Auto 0 /uL (0-450); Hematocrit 32.4 % (36-46); Hemoglobin 10.2 g/dL (12.0-16.0); Lymphocytes Absolute Auto 600 /uL (1100-4500); Mean Corpuscular HGB Conc 31.5 % (30-36); Mean Corpuscular Volume 82.4 fL (80-100); Monocytes Absolute Auto 500 /uL (0-900); Monocytes Percent Auto 5.4 % (3-14); Neutrophils Absolute Auto 7600 /uL (1500-7000); Neutrophils Percent Auto 87.1 % (50-75); Platelet Count 564 X10^3/uL (150-400); Red Blood Cell Count 3.93 X10^6/uL (4.0-5.2); Red Cell Distribution Width 16.3 % (11.6-14.8); White Blood Cell Count 8.8 X10^3/uL (4.5-11.0)
[2020-07-09 21:02] LABS: Prothrombin Time 11.3 SECONDS (10.1-12.7)
[2020-07-09 21:05] LABS: PTT Partial Thromboplastin Tim 24 SECONDS (26.4-36.2)
[2020-07-09 21:07] LABS: Alanine Aminotransferase 19 IU/L (<35); Albumin 3.2 g/dL (3.5-5.0); Albumin Globulin Ratio 1.3 (1.0-2.8); Alkaline Phosphatase 181 U/L (38-126); Aspartate Aminotransferase 27 IU/L (14-36); Bilirubin Total 0.9 mg/dL (0.2-1.3); Blood Urea Nitrogen 16 mg/dL (7-17); Calcium 8.1 mg/dL (8.4-10.2); Carbon Dioxide 34 mmol/L (22-32); Chloride 99 mmol/L (98-107); Creatine Kinase 24 U/L (30-135); Estimated Glomerular Filt Rate > 60.0 mL/min (>60); Ethanol (ETOH) < 10 mg/dL; Globulin 2.5 g/dL (1.7-4.1); Glucose 156 mg/dL (70-100); HEMOLYSIS 28 (0-50); Lipase 28 U/L (23-300); Potassium 4.3 mmol/L (3.4-5.1); Sodium 134 mmol/L (137-145); Total Protein 5.7 g/dL (6.3-8.2)
[2020-07-09 21:18] LABS: Troponin I < 0.012 ng/mL (0.01-0.034)
[2020-07-09 21:27] LABS: Procalcitonin < 0.05 ng/mL (<0.5)
[2020-07-09 21:38] VITALS: BP 180/96; BP 184/85; BP 185/108; PULSE 57; PULSE 77; PULSE 95
[2020-07-09 22:02] VITALS: BP 155/70; PULSE 72; RESP 18; O2SAT 100
== END 2020-07-09 22:04 | disposition home or self-care (01) ==
PROVIDERS: Emergency Provider Emergency Medicine; Family Provider Physician Assistant; PCP Physician Assistant
DX: R53.1 Weakness (principal); R00.1 Bradycardia, unspecified; D64.9 Anemia, unspecified
CPT/HCPCS: 36415; 80053; 80320; 81003; 81015; 82550; 83605; 83690; 84145; 84484; 85025; 85610; 85730; 86850; 86900; 86901; 87086; 93005; 99283

== ENCOUNTER 2021-01-18 20:19 | Emergency (ER) | payer OTHER, MEDICAID, SELFPAY ==
[2018-08-26 22:30] VITALS: BMI 23.8
[2021-01-18 20:43] VITALS: BP 155/78; PULSE 87; RESP 25; TEMP 36.4; O2SAT 96; BMI 17.6
--- NOTE | 2021-01-18 21:04 | ED.BACK ---
HPI - Back Pain/Injury General Chief Complaint: Back Pain/Injury Stated Complaint: Pain, Low Pot Time Seen by Provider: 01/18/21 20:46 Source: patient and EMS Mode of arrival: EMS Limitations: no limitations History of Present Illness HPI Narrative: Patient is a 51-year-old female who states that she has pancreatic cancer and also recently diagnosed with kidney cancer. Is receiving immunotherapy injections. Her last 1 being approximately 1 week ago. During these times she has been told that her potassium was low and so she was sent home on oral supplementation however 3 weeks ago she injured her lower back which seemed to worsen over the past 2-3 days causing her to have nausea and inability to take her pain medicine and also her potassium supplements so she was concerned about this and came to the emergency department. Related Data Home Medications Medication Instructions Recorded Confirmed amlodipine 10 mg PO DAILY 08/26/18 08/26/18 ascorbic acid (vitamin C) [Vitamin 500 mg PO DAILY 08/26/18 08/26/18 C] aspirin [Aspir-81] 81 mg PO DAILY 08/26/18 08/26/18 ferrous sulfate [iron] 325 mg PO DAILY 08/26/18 08/26/18 fludrocortisone 0.1 mg PO DAILY 08/26/18 08/26/18 glimepiride 4 mg PO QAM 08/26/18 08/26/18 hydrocortisone 20 mg PO TID 08/26/18 08/26/18 insulin glargine [Lantus U-100 12 unit SUBCUT DAILY 08/26/18 08/26/18 Insulin] [id number] [Creon] 1 cap PO QD-TID 08/26/18 08/26/18 lisinopril 40 mg PO DAILY 08/26/18 08/26/18 medroxyprogesterone 10 mg PO DAILY 08/26/18 08/26/18 methadone 20 mg PO Q6H 08/26/18 08/26/18 omeprazole 20 mg PO DAILY 08/26/18 08/26/18 ondansetron 8 mg PO Q8-12H PRN 08/26/18 08/26/18 oxycodone 10 mg PO Q4-6H PRN 08/26/18 08/26/18 ranitidine HCl 150 mg PO PRN PRN 10/16/18 10/16/18 simethicone 180 mg PO DAILY 08/26/18 08/26/18 Previous Rx's Medication Instructions Recorded fluconazole [Diflucan] 100 mg PO DAILY #2 tab 04/08/19 Allergies Allergy/AdvReac Type Severity Reaction Status Date / Time Sulfa (Sulfonamide Allergy Intermediate Verified 07/09/20 18:02 Antibiotics) [SULFA (SULFONAMIDE ANTIBIOTICS)] Review of Systems Constitutional Constitutional: Denies fever(s) and Denies headache(s) ENT Ears, Nose, Mouth, and Throat: Denies headache(s) Cardiovascular Cardiovascular: Denies chest pain and Denies dyspnea Respiratory Respiratory: Denies dyspnea Gastrointestinal Gastrointestinal: Denies change in bowel habits, Reports nausea and Reports vomiting Genitourinary Genitourinary: Denies dysuria Genitourinary: Denies dysuria Musculoskeletal Musculoskeletal: Reports back pain Integumentary/Breasts Skin/Breast: Denies rash Neurologic Neurologic: Denies behavioral changes and Denies headache(s) Psychiatric Psychiatric: Denies behavioral changes Hematologic/Lymphatic On Anticoagulants: No Allergic/Immunologic Allergic/Immunologic: Denies urticaria Patient History Medical History Chronic adrenal insufficiency Pheochromocytoma Primary pancreatic neuroendocrine tumor Von Hippel-Lindau syndrome Social History household members: spouse Smoking Status: Current some day smoker Smoking Status: Current some day smoker alcohol intake frequency: holidays/special occasions only Substance Use Type: does not use Exam Initial Vital Signs Initial Vital Signs: Vital Signs Temperature 97.6 F 01/18/21 20:43 Pulse Rate 87 01/18/21 20:43 Respiratory Rate 25 H 01/18/21 20:43 Blood Pressure 155/78 H 01/18/21 20:43 Pulse Oximetry 96 01/18/21 20:43 Const General: disheveled Limitations: mental status not altered HENMT Head: normal to inspection and normocephalic Resp Effort & Inspection: normal respiratory effort Cardio Rate: regular rate Back/Spine/Pelvis Thoracic/Lumbar Spine: paraspinal tenderness Skin Lesions: no lesions Rashes: no rashes Neuro General: patient alert and patient awake Gait: normal gait Psych Appearance: grossly normal and well kempt Course Orders Ordered: ED Orders 01/18/21 20:40 Basic Metabolic Panel Stat Discontinued Medications Ondansetron HCl (Ondansetron 4 Mg/2 Ml Inj) 4 mg IV NOW ONE Stop: 01/18/21 21:21 Last Admin: 01/18/21 21:23 Dose: 4 mg Documented by: JOE Oxycodone/Acetaminophen (Oxycodone/Acetaminophen 5/325 Tablet) 2 tab PO NOW ONE Stop: 01/18/21 21:06 Last Admin: 01/18/21 21:18 Dose: 2 tab Documented by: JOE Vital Signs Vital signs: Vital Signs - 8 hr 01/18/21 20:43 01/18/21 22:12 Temperature 97.6 F Pulse Rate 87 Respiratory Rate 25 H 16 Blood Pressure 155/78 H Pulse Oximetry 96 [facility] - Back Pain/Injury Lab Data Attestation: I reviewed the patient's lab results. Result diagrams: 01/18/21 20:40 01/18/21 20:40 Labs: Lab Results 01/18/21 Range/Units 20:40 Sodium 135 L (137-145) mmol/L Potassium 3.4 (3.4-5.1) mmol/L Chloride 93 L (98-107) mmol/L Carbon Dioxide 39 H (22-32) mmol/L BUN 15 (7-17) mg/dL Creatinine 0.59 (0.52-1.04) mg/dL Estimated GFR > 60.0 (>60) mL/min BUN/Creatinine Ratio 25.4 H (6-22) Glucose 212 H (70-100) mg/dL Calcium 8.8 (8.4-10.2) mg/dL ECG Data Attestation: I personally reviewed and interpreted this ECG as follows: Prior ECG tracings: not available for review Interpretation: Sinus rhythm Ventricular rate 87 Left axis deviation Artifact noted [facility] Narrative Medical decision making narrative: Patient has had right lower back pain for 3 weeks. Low suspicion for cauda equina. Her potassium years unremarkable. She tolerated oral pain medicine after a told her that she would only be receiving 1 dose of medication given the fact that she is on pain medicine and also methadone at home. She tolerated this without any problems. She walked to the bathroom with a walker without problems. Discussed all this with the patient. for follow-up with her primary doctor and she can be safely discharged home without further workup here in the emergency department. She expressed understanding and agreement. Discharge Plan Departure Patient Disposition: Home Clinical Impression: Strain of lumbar region, Fatigue Instructions: DI for Back Strain or Sprain Activity Restrictions/Additional Instructions: I recommend that you continue with all of your medications as directed. Contact your primary provider for follow-up. Keep all of your scheduled medical appointments. Return to the emergency department for any new or worsening symptoms Prescriptions: No Action medroxyprogesterone 10 mg Tablet 10 mg PO DAILY RF: 0 insulin glargine [Lantus U-100 Insulin] 100 unit/mL Solution 12 unit SUBCUT DAILY RF: 0 simethicone 180 mg Capsule 180 mg PO DAILY RF: 0 aspirin [Aspir-81] 81 mg Tablet,Delayed Release (Dr/Ec) 81 mg PO DAILY RF: 0 ondansetron 8 mg Tablet,Disintegrating 8 mg PO Q8-12H PRN (Reason: Nausea) RF: 0 ascorbic acid (vitamin C) [Vitamin C] 500 mg Tablet 500 mg PO DAILY RF: 0 amlodipine 10 mg Tablet 10 mg PO DAILY RF: 0 ferrous sulfate [iron] 325 mg (65 mg iron) Tablet 325 mg PO DAILY RF: 0 ranitidine HCl 150 mg Tablet 150 mg PO PRN PRN (Reason: Heartburn) RF: 0 glimepiride 4 mg Tablet 4 mg PO QAM RF: 0 hydrocortisone 20 mg Tablet 20 mg PO TID RF: 0 omeprazole 20 mg Capsule,Delayed Release(Dr/Ec) 20 mg PO DAILY RF: 0 lisinopril 40 mg Tablet 40 mg PO DAILY RF: 0 fludrocortisone 0.1 mg Tablet 0.1 mg PO DAILY RF: 0 [id number] [Creon] 36,000-114,000- 180,000 unit Capsule,Delayed Release(Dr/Ec) 1 cap PO QD-TID RF: 0 methadone 10 mg Tablet 20 mg PO Q6H RF: 0 oxycodone 10 mg Tablet 10 mg PO Q4-6H PRN (Reason: Pain (Scale Score 1-3)) RF: 0 fluconazole [Diflucan] 100 mg tablet 100 mg PO DAILY Qty: 2 RF: 0 Referrals: Mesha Parker PA-C [Primary Care Provider] -
[2021-01-18 21:13] LABS: BUN Creatinine Ratio 25.4 (6-22); Blood Urea Nitrogen 15 mg/dL (7-17); Calcium 8.8 mg/dL (8.4-10.2); Chloride 93 mmol/L (98-107); Estimated Glomerular Filt Rate > 60.0 mL/min (>60); Glucose 212 mg/dL (70-100); HEMOLYSIS < 15 (0-50); Potassium 3.4 mmol/L (3.4-5.1); Sodium 135 mmol/L (137-145)
[2021-01-18 21:15] LABS: Carbon Dioxide 39 mmol/L (22-32)
[2021-01-18] MEDS: OXYCODONE/ACETAMINOPHEN 5/325 TABLET 2 TAB PO (21:18)
[2021-01-18] MEDS: ONDANSETRON 4 MG/2 ML INJ IV (21:23)
[2021-01-18 22:12] VITALS: RESP 16
== END 2021-01-18 22:21 | disposition home or self-care (01) ==
PROVIDERS: Emergency Provider Emergency Medicine; Family Provider Physician Assistant; PCP Physician Assistant
DX: S39.012A Strain of muscle, fascia and tendon of lower back, initial encounter (principal); R53.83 Other fatigue; R11.2 Nausea with vomiting, unspecified
CPT/HCPCS: 36415; 80048; 93005; 96374; 99283; 99284; J2405